=== PATIENT | female | born 2005 | race African-American/Black ===

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

== ENCOUNTER 2024-12-13 17:56 | Emergency (ER) | payer MEDICAID, SELFPAY ==
--- NOTE | ~2024-12-13 | XR_ITS ---
CLINICAL HISTORY: left shoulder pain Two views of the left shoulder. COMPARISON: None provided. FINDINGS: Proximal left humerus, the left scapula, and the left clavicle appear intact. Humeral head is appropriately seated in the glenoid. Acromioclavicular joint appears maintained. Visualized portions of the left lung are clear. IMPRESSION: 1. No radiographic evidence of acute injury to the left shoulder. This document has been electronically signed by: Margarito Resendiz MD on 12/13/2024 19:01:33
[2024-12-13 18:01] VITALS: BP 122/67; PULSE 81; RESP 14; TEMP 36.8; O2SAT 99; BMI 20.7
--- NOTE | 2024-12-13 18:10 | ED_ITS ---
HPI - General Adult General Chief complaint: Extremity Problem Stated complaint: left shoujlder pain Time Seen by Provider: 12/13/24 18:54 Source: patient Mode of arrival: ambulatory Limitations: no limitations History of Present Illness ED Provider: DR. Salazar HPI narrative: 19-year-old female came in for evaluation of left shoulder pain. Patient been having problem with her left shoulder for the past 2 years on and off, shoulder pain has been constant for last 2- 3 days after heavy lifting at the gym and work. Related Data Allergies Allergy/AdvReac Type Severity Reaction Status Date / Time No Known Allergies (No Known Allergy Verified 12/13/24 18:03 Allergies*) Review of Systems Review of Systems: All other systems are reviewed and are negative Constitutional: Reports as per HPI and Reports no additional constitutional complaints Eyes: Reports as per HPI and Reports no additional eye complaints Reports system reviewed and no additional complaints, except as documented Cardiovascular: Reports as per HPI and Reports no additional cardiovascular complaints Respiratory: Reports as per HPI and Reports no additional respiratory complaints Gastrointestinal: Reports as per HPI and Reports no additional gastrointestinal complaints Genitourinary: Reports no additional female genitourinary complaints Musculoskeletal: Reports no additional musculoskeletal complaints Skin/Breast: Reports system reviewed and no additional complaints, except as docu Psychiatric: Reports no additional psychiatric complaints Endocrine: Reports no additional endocrine complaints Hematologic/Lymphatic: Reports no additional hematologic/lymphatic complaints Allergic/Immunologic: Reports no additional allergic/immunologic complaints Reports system reviewed and no additional complaints, except as documented and Reports Abnormal speech present [facility] Past Medical History Medical History No pertinent past medical history Social History Social History Household Members Other:: Lives with mom, dad, sister Smoked in Last 30 Days: No Advance Directives: No Advance Directives Information Provided: No Do you have a plan to hurt others: No Plan Physical Exam ED Vital Signs: Vital Signs - 24 hr 12/13/24 18:01 12/13/24 19:56 Temperature 98.3 F 98.3 F Pulse Rate 81 81 Respiratory Rate 14 14 Blood Pressure 122/67 122/67 Pulse Oximetry 99 99 Oxygen Delivery Method Room Air Room Air BMI result Body Mass Index 20.7 Vital signs have been reviewed and appear to be correct. Blood pressure elevated. Heart rate normal. Respiratory rate normal. Temperature normal. Oxygen saturation normal. Appearance: Alert. Oriented X3. No acute distress. Head: Normal external exam. Normocephalic. Atraumatic. No Foster signs noted. No raccoon eyes noted Eyes: PERRLA. EOMI. Conjunctiva and sclera normal. Eyelids normal. ENT: TM's Normal. Pharynx normal. Uvula midline. Moist mucous membranes. No tr ismus noted. No drooling noted. No muffled voice noted. Neck: Normal inspection. Neck supple. FROM. No adenopathy. Thyroid Normal. No meningeal signs. No neck mass noted. CVS: Normal heart rate and rhythm. Heart sound normal. No murmurs noted. Pulses normal throughout. Respiratory: No respiratory distress. Painless inspiration. Breath sounds normal. No wheezes/rales/rhonchi noted. Chest nontender. No accessory muscle usage noted or decreased air movement noted. Abdomen: Soft and nontender. Bowel sounds normal in all 4 quadrants. No distention noted. No organomegaly noted. No visible injury noted. Back: No CVA tenderness. Full range of motion noted. Skin: Skin warm and dry. Normal skin color. Normal skin turgor. No rashes/lesions/lacerations noted. Extremities: Left shoulder: Held in adduction position, started to hurt once it reach above 30 degree abduction, limited range of motion secondary to pain, no anterior fullness, neurovascularly intact. Neuro: Oriented X 3. Cranial nerve exam: II-XII are grossly intact No motor deficit. No sensory deficit. Reflexes normal. Course Course Course Narrative: RME: 19 yold female presens to the Ed for left shoulder pain that has been occurring for the past 2 years that has worsenend the past few week due to heavy lifting at work. Patient denies any chest pain or shortness of breath. Xray ordre. Reevaluation(s) Reevaluation #1: Acute on chronic left rotator cuff tendinitis. Patient was instructed to rest, refrain from heavy lifting until pain completely resolved, heating pad, NSAIDs if needed, and follow-up with ortho. Time: 19:49 Medical Decision Making Differential Diagnosis Differential Diagnoses: The differential diagnosis associated with the presentation includes (Left shoulder fracture, left shoulder dislocation, rotator cuff tendinitis.) Admission/Observation Consideration of admission/observation: Escalation of care including admission/observation considered Independent Interpretation I performed an independent interpretation of an: Plain X-Ray (Left shoulder:. No radiographic evidence of acute injury to the left shoulder.) Radiology Impression Discussion of test interpretation with radiology: I have reviewed the radiologist's reading. Discharge Plan Discharge Clinical Impression: Right rotator cuff tendonitis Patient Disposition: Home, Self-Care Instructions: Rotator Cuff Tendinitis (ED) Additional Instructions: Refrain from heavy lifting, no strenuous activity, rest, heating pad, take ibuprofen (200 mg tablet [id number]) if needed for pain Referrals: David Kingsley MD [Physician, Orthopedics] Stand Alone Forms: Work/School Release Interventions: ED Discharge Assessment Last Done: 12/13/24 19:56 Discharge Date/Time: 12/13/24 19:57 Print Language: Slovenian
[2024-12-13 19:56] VITALS: BP 122/67; PULSE 81; RESP 14; TEMP 36.8; O2SAT 99
== END 2024-12-13 19:57 | disposition home or self-care (01) ==
PROVIDERS: Emergency Provider Emergency Medicine
DX: M65.221 Calcific tendinitis, right upper arm (principal); M25.512 Pain in left shoulder
CPT/HCPCS: 73030; 99283

== ENCOUNTER → 2024-12-13 18:09 | Outpatient (BNV) | payer MEDICAID, SELFPAY | PROVIDERS: Emergency Provider Emergency Medicine; Visit Provider Radiology Diagnostic Radiology | DX: M25.512 Pain in left shoulder (principal) | CPT/HCPCS: 73030 ==

== ENCOUNTER 2025-02-07 10:53 | Outpatient (REF) | payer MEDICAID, SELFPAY ==
--- OUTSIDE RECORDS SUMMARY | 2025-02-07 10:00 | XMS_ITS | Encounter Summary ---
Author Organization [employer] Address [address] [place] [address] Care Team Providers Care Dry Can Tender Name Role Phone Jaye Travis MD Primary Care Provider [phone]- [phone] Reason for Referral * Consultation (Routine) - Authorized Specialty Diagnoses / Procedures Referred By Elena sharpe Referred To Contact Optometry Diagnoses Wears glasses Jaye Travis MD [address] [place], [place] Phone: tel: fax: [facility] [address] [place] [address] Phone: tel: fax: Referral ID Status Reason Start Date Expiration Date Visits Requested Visits Authorized [id number] Authorized Consult and Treat 02/07/2025 02/07/2026 1 1 * Consultation (Routine) - Authorized Specialty Diagnoses / Procedures Referred By Contkurtis t Referred To Contact Allergy Diagnoses Food intolerance Seasonal allergies Jaye Travis MD [address] [place] [address] Phone: tel: fax: Sarwat Dai MD [address] [place] [address] Drive [address] [place] [address] Phone: tel: fax: Referral ID Status Reason Start Date Expiration Date Visits Requested Visits Authorized [id number] Authorized Specialty Services Required 02/07/2025 02/07/2026 12 12 Reason for Visit * Reason Comments Annual Exam Encounter Details Date Type Department Care Team (Late st Contact Info) Description 02/07/2025 10:00 AM EDT Office Visit [facility] [address] [place] [address] Jaye Travis MD [address], [place] [id number] Elective mutism (Primary Dx); Chronic left shoulder pain; Abdominal bloating; Postural dizziness with presyncope; Food intolerance; Seasonal allergies; Vitamin D deficiency; Wears glasses; Screening for cholesterol level; Screening for diabetes mellitus; Routine screening for STI (sexually transmitted infection); Other specified health status Social History Tobacco Use Types Packs/Day Years Used Date Smoking Tobacco: Never Passive Smoke Exposure: Never Smokeless Tobacco: Never Depression Answer Date Recorded Patient Health Questionnaire-9 Score 1 02/07/2025 Patient Health Questionnaire-9 Score 1 02/07/2025 Last PHQ-9: Questionnaire Data Not on file 0 02/07/2025 Housing Stability Answer Date Recorded What is your housing situation today? I have christine davis 02/07/[address] you li ve. Do you have problems with any of the following? None of the above 02/07/2025 Food Insecurity Answer Date Recorded Within the past 12 months, y ou worried that your food would run out before you got money to buy more: Never True 02/07/2025 Within the past 12 months,th e food you bought just didn't last and you didn't have enough money to get more: Never True Transportation Answer Date Recorded In the past 12 months, has l ack of transportation kept you from medical appts, meetings, work or from getting things needed for daily living? No 02/07/2025 Utilities Answer Date Recorded In the past 12 months, has t he electric, gas, oil or water company threatened to shut off services in your home? No 02/07/2025 Depression Answer Date Recorded Patient Health Questionnaire-2 Score 0 02/07/2025 Internet Access Answer Date Recorded Internet Access Q1 I am not sure 02/07/2025 Internet Access Q2 Not on file 02/07/2025 Comments No Sex and Gender Information Value Date Recorded Sex Assigned at Female 04/12/2022 10:19 AM EDT Legal Sex Female 10:19 AM EDT Gender Identity Female 04/12/2022 10:19 AM EDT Sexual Orientation Choose not to disclose 2021 10:19 AM EDT documented as of this encounter Last Filed Vital Signs Vital Sign Reading Time Taken Comments Blood Pressure 96/62 02/07/2025 10:06 AM EDT Pulse 78 02/07/2025 10:06 AM EDT Temperature 34.7 C (94.4 F) 02/07/2025 10:06 AM EDT Respiratory Rate 20 02/07/2025 10:06 AM EDT Oxygen Saturation 98% 02/07/2025 10:06 AM EDT Inhaled Oxygen Concentration - - Weight 65.5 kg (144 lb 6.4 oz) 02/07/2025 10:06 AM EDT Height 175.3 cm (5' 9 ) 02/07/2025 10:06 AM EDT Body Mass Index 21.32 02/07/2025 10:06 AM EDT documented in this encounter Functional Status * Over the past 2 weeks, how often have you been bothered by any of the following problems? Question Answer Date of Assessment Author Patient Health Questionnaire-2 Score 0 01/12 10:25 AM Lurdes Rodriguez MA * Little interest or pleasure in doing things Answer Date of Assessment Author Not at all 02/07/2025 10:25 AM Rimma Rodriguez MA * Feeling down, depressed, or hopeless Answer Date of Assessment Author Not at all 02/07/2025 10:25 AM GILAT Rimma Alfonso MA * Trouble falling or staying asleep, or sleeping too much Answer Date of Assessment Author Not at all 02/07/2025 10:25 AM Rimma Rodriguez MA * Feeling tired or having little energy Answer Date of Assessment Author Several days 02/07/2025 10:25 AM Rimma Rodriguez MA * Poor appetite or overeating Answer Date of Assessment Author Not at all 02/07/2025 10:25 AM Rimma Rodriguez MA * Feeling bad about yourself - or that you are a failure or have let yourself or your family down Answer Date of Assessment Author Not at all 02/07/2025 10:25 AM Rimma Rodriguez MA * Trouble concentrating on things, such as reading the newspaper or watching television Answer Date of Assessment Author Not at all 02/07/2025 10:25 AM Rimma Rodriguez MA * Moving or speaking so slowly that other people could have noticed? Or the opposite - being so fidgety or restless that you have been moving around a lot more than usual. Answer Date of Assessment Author Not at all 02/07/2025 10:25 AM Rimma Rodriguez MA * Thoughts that you would be better off or hurting yourself in some way Answer Date of Assessment Author Not at all 02/07/2025 10:25 AM Rimma Rodriguez MA * Patient Health Questionnaire-9 Score Answer Date of Assessment Author 1 02/07/2025 10:25 AM Rimma Rodriguez MA * Over the last 2 weeks, how often have you been bothered by any of the following problems? Question Answer Date of Assessment Author Feeling nervous, anxious, or on edge 0 01/12 10:30 AM Lurdes Rodriguez MA Not being able to stop or co ntrol worrying 0 02/07/2025 10:30 AM Lurdes Rodriguez M A Worrying too much about diff erent things 0 02/07/2025 10:30 AM Lurdes Rodriguez M A Trouble relaxing 0 02/07/2025 10:30 AM Lurdes Rodriguez MA Being so restless that it is hard to sit still 0 02/07/2025 10:30 AM Lurdes Rodriguez M A Becoming easily annoyed or irritable 0 01/12 10:30 AM Lurdes Rodriguez MA Feeling afraid as if somethi ng awful might happen 0 02/07/2025 10:30 AM Ludres Rodriguez M A JULIA-7 Total Score 0 02/07/2025 10:30 AM Lurdes Rodriguez MA documented as of this encounter Progress Notes * Jaye Travis MD - 02/07/2025 10:00 AM EDT Subjective Sindy is a 19 y.o. 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 Last seen for physical 2022. Pt reports she is tired because she has been playing video games with her siblings and keeping thementertained this summer. She notes she is working at [employer] and has been lifting heavy things. Denies any back strain. She notes she had shoulder strain on her chronic shoulder pain previously and had Mom reports a list of concerns. She reports wanting to check for diabetes, POTS, vertigo, thyroid, and allergy testing. Pt reports she has been thinking she has vertigo she notices everything slow down and has blackenedvision. Mom says she has had episodes where she has had syncopal episodes. Mostly occurring from going from sitting to standing and an isolated episode where pt had dizziness and blurry vision while standing. Pt reports she has these episodes frequently, but is not specific about the frequency. She notes she has been having episodes of noticeable bloating after eating. Pt says she has been using lactose free milk. Denies any diarrhea, vomiting or allergic reactions. Recommended trying gluten and soy free diets and then reintroduce to evaluate for sensitivity. Social History Home: She lives at home with both her parents as well as multiple siblings. Tobacco: denied Drugs: none Alcohol: No Sexuality: Has a male partner. Declines control, having sexual intercourse, pulling out to avoid , uses condoms every time. Declines extra condoms. Offered plan B. Suicide/Depression: The patient denies any present symptoms of depression or anxiety. Review of Systems Constitutional: Negative for fatigue, fever and unexpected weight change. Respiratory: Negative for cough. Cardiovascular: Negative for chest pain. Gastrointestinal: Negative for abdominal pain. Genitourinary: Negative for difficulty urinating. Neurological: Positive for dizziness. Current Medications[1] Allergies[2] Medical History[3] Surgical History[4] Family History[5] Objective Visit Vitals BP 96/62 (BP Location: Left arm, Patient Position: Standing, BP Cuff Size: Adult) Pulse 78 Temp 94.4 ??F (34.7 ??C) (Oral) Resp 20 Ht 5' 9 (1.753 m) Wt 144 lb 6.4 oz (65.5 kg) SpO2 98% BMI 21.32 kg/m?? OB Status Having periods Smoking Status Never BSA 1.79 m?? Physical Exam Constitutional: Appearance: Normal appearance. HENT: Head: Normocephalic. Right Ear: Tympanic membrane normal. Left Ear: Tympanic membrane normal. Mouth/Throat: Pharynx: Oropharynx is clear. Eyes: Pupils: Pupils are equal, round, and reactive to light. Cardiovascular: Rate and Rhythm: Normal rate and regular rhythm. Heart sounds: Normal heart sounds. Pulmonary: Effort: Pulmonary effort is normal. Breath sounds: Normal breath sounds. Abdominal: General: Abdomen is flat. Palpations: There is no mass. Tenderness: There is no abdominal tenderness. Musculoskeletal: General: Normal range of motion. Cervical back: Normal range of motion and neck supple. Lymphadenopathy: Cervical: No cervical adenopathy. Skin: General: Skin is warm and dry. Neurological: General: No focal deficit present. Mental Status: She is alert. Psychiatric: Behavior: Behavior normal. 19 y.o. female annual evaluation. Assessment & Plan Elective mutism Improving, still selective, but able to talk to me and mom and has a boyfriend. Chronic left shoulder pain Heavy lifting at work. -encouraged supportive care, ice and heat therapy, physical therapy, and stretch/exercise as tolerable. Abdominal bloating No evidence of acute abdomen. Denies diarrhea or vomiting. No changes in BM. -encouraged dietary changes and experimenting with soy, gluten and diary. -referred to cabinet maker 02/07/25 Postural dizziness with presyncope Reports episodes of dizziness and visual blackout. Isolated witnessed syncope. Denies chest pain, SOB or palpitations. No fhx of CAD. Typically occurring with orthostatic movements. -ordered CBC, TSH, Iron panel and Vit B12 02/07/25 -discussed stretching, exercises and at home therapy for suspected POTS. Orders: CBC auto differential; Future Ferritin; Future TSH with Reflex to Free T4; Future Iron And Total Iron Binding Capacity; Future Vitamin B12 (Cobalamin) and Folate Panel, Serum; Future Food intolerance No evidence of acute abdomen. Denies diarrhea or vomiting. No changes in BM. -encouraged dietary changes and experimenting with soy, gluten and diary. -referred to cabinet maker 02/07/25 Orders: Referral to Allergy; Future Seasonal allergies -referred to cabinet maker 02/07/25 Orders: Referral to Allergy; Future Vitamin D deficiency -ordered Vit D 02/07/25 Orders: Vitamin D, 25-Hydroxy, Total, Immunoassay; Future Wears glasses Orders: Referral to [facility]; Future Screening for cholesterol level -ordered FLP 02/07/25 Orders: Lipid Panel, Standard; Future Screening for diabetes mellitus -ordered BMP 02/07/25 Orders: Basic Metabolic Panel; Future Routine screening for STI (sexually transmitted infection) Orders: Chlamydia/N. Gonorrhoeae, PCR, Urine HIV-1/2 Antigen and Antibodies, Fourth Generation, with Reflexes; Future Syphilis Screen; Future Hepatitis C Antibody with Reflex to HCV, RNA, Quantitative, Real-Time PCR; Future Other specified health status -next comprehensive annual evaluation due after 02/07/26 -referred to [facility] 02/07/25 -dental home is encouraged. Will get in with [facility]. -ashleigh care proxy given and filed 02/07/25 Annual Evaluation -Normal growth and development. -Anticipatory guidance discussed. -Preventative care / harm reduction discussed. Follow up in about 1 year (around 02/07/2026) for physical. I, Fercho Juan, am serving as a scribe to document services personally performed by Dr. Ley, based on the patient's response to questions by provider and providers statements to me. [1] Current Outpatient Medications: cetirizine (ZyrTEC) 10 MG tablet, Take 1 tablet (10 mg) by mouth Once per day., Disp: 30 tablet, Rfl: 0 D3-1000 25 MCG (1000 UT) capsule, TAKE 1 CAPSULE BY MOUTH EVERY DAY, Disp: 90 capsule, Rfl: 3 fluticasone (Flonase) 50 MCG/ACT nasal spray, Administer 1 spray into each nostril Once per day. Shake gently. Before first use, prime pump. After use, clean tip and replace cap., Disp: 16 g, Rfl: 0 lidocaine (Lidoderm) 5 % patch, Apply 1 patch topically Once per day. Remove & discard patch within 12 hours or as directed by MD., Disp: 30 patch, Rfl: 11 montelukast (Singulair) 10 MG tablet, TAKE 1 TABLET BY MOUTH EVERY DAY, Disp: 90 tablet, Rfl: 3 [2] No Known Allergies [3] History reviewed. No pertinent past medical history. [4] History reviewed. No pertinent surgical history. [5] Family History Problem Relation Name Age of Onset Diabetes Father Hypertension Father documented in this encounter Miscellaneous Notes * Assessment & Plan Note - Jaye Travis MD - 02/07/2025 10:00 AM EDT Associated Problem(s): Elective mutism Improving, still selective, but able to talk to me and mom and has a boyfriend. * Assessment & Plan Note - Jaye Travis MD - 02/07/2025 10:00 AM EDT Associated Problem(s): Other specified health status -next comprehensive annual evaluation due after 02/07/26 -referred to [facility] 02/07/25 -dental home is encouraged. Will get in with [facility]. -ashleigh care proxy given and filed 02/07/25 * Assessment & Plan Note - Jaye Travis MD - 02/07/2025 10:00 AM EDT Associated Problem(s): Wears glasses Orders: Referral to [facility]; Future documented in this encounter Plan of Treatment Scheduled Orders Name Type Priority Associated Diagnoses Orde r Schedule Chlamydia/N. Gonorrhoeae, PCR, Urine Lab Routine Routine screening for STI (sexually transmitted infection) Ordered: 02/07/2025 HIV-1/2 Antigen and Antibodies, Fourth Generation, with Reflexes Lab Routine Routine screening for STI (sexually transmitted infection) Expected: 02/07/2025 (Approximate), Expires: 02/07/2026 Syphilis Screen Lab Routine Routine screening for STI (sexually transmitted infection) Expected: 02/07/2025 (Approximate), Expires: 02/07/2026 Hepatitis C Antibody with Reflex to HCV, RNA, Quantitative, Real-Time PCR Lab Routine Routine screening for STI (sexually transmitted infection) Expected: 02/07/2025 (Approximate), Expires: 02/07/2026 Basic Metabolic Panel Lab Routine Screening for diabetes mellitus Expected: 02/07/2025 (Approximate), Expires: 02/07/2026 Lipid Panel, Standard Lab Routine Screening for cholesterol level Expected: 02/07/2025 (Approximate), Expires: 02/07/2026 CBC auto differential Lab Routine Postural dizziness with presyncope Expected: 02/07/2025 (Approximate), Expires: 02/07/2026 Ferritin Lab Routine Postural dizziness with presyncope Expected: 02/07/2025, Expires: 02/07/2026 TSH with Reflex to Free T4 Lab Routine Postural dizziness with presyncope Expected: 02/07/2025 (Approximate), Expires: 02/07/2026 Iron And Total Iron Binding Capacity Lab Routine Postural dizziness with presyncope Expected: 02/07/2025, Expires: 02/07/2026 Vitamin B12 (Cobalamin) and Folate Panel, Serum Lab Routine Postural dizziness with presyncope Expected: 02/07/2025, Expires: 02/07/2026 Vitamin D, 25-Hydroxy, Total, Immunoassay Lab Routine Vitamin D deficiency Expected: 02/07/2025 (Approximate), Expires: 02/07/2026 Scheduled Referrals Name Type Priority Associated Diagnoses Orde r Schedule Referral to Allergy Outpatient Referral Routine Food intolerance Seasonal allergies Expected: 02/07/2025 (Approximate), Expires: 02/07/2026 Referral to [facility] Outpatient Referral Routine Wears glasses Expected: 02/07/2025 (Approximate), Expires: 02/07/2026 documented as of this encounter Visit Diagnoses Diagnosis Elective mutism- Primary 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 Chronic left shoulder pain Pain in joint, shoulder region Abdominal bloating Flatulence, eructation, and gas pain Postural dizziness with presyncope Food intolerance Other specified intestinal malabsorption Seasonal allergies Allergic rhinitis, cause unspecified Vitamin D deficiency Wears glasses Other specified conditions influencing health status Screening for cholesterol level Screening for diabetes mellitus Routine screening for STI (sexually transmitted infection) Screening examination for venereal disease Other specified health status documented in this encounter Additional Health Concerns Assessment Noted Time PHQ-9 Depression Total Score: 1 02/08/20 25 10:25 AM EDT documented as of this encounter Care Teams Dry Can Tender Relationship Specialty Start Date End Date Jaye Travis MD [address] [place] [id number] PCP - General Family Medicine 06/13/18 documented as of this encounter
--- OUTSIDE RECORDS SUMMARY | 2025-02-07 12:21 | XMS_ITS | Encounter Summary ---
Author Organization [employer] Address [address] [place] [address] Care Team Providers Care Supervisor Microbiology Technologists Name Role Phone Jaye Travis MD Primary Care Provider +1- [phone] Encounter Details Date Type Department Care Team (Latest Contact Info) Description 02/07/2025 Travel Social History Tobacco Use Types Packs/Day Years [...] AM EDT documented as of this encounter Functional Status * Over the [...] 10:25 AM Rimma Rodriguez MA * Trouble falling or staying asleep, [...] or on edge 0 01/12 10:30 AM EDLurdes Mustafa MA Not being able to stop or [...] awful might happen 0 02/07/2025 10:30 AM Lurdes Rodriguez M A JULIA-7 Total Score 0 02/07/2025 10:30 AM Lurdes Rodriguez MA documented as of this encounter Plan of Treatment Not on file documented as of this encounter Visit Diagnoses Not on filedocumented in this encounter Additional Health Concerns Assessment Noted Time PHQ-9 Depression Total Score: 1 02/08/20 10:25 AM EDT documented as of this encounter Care Teams Supervisor Microbiology Technologists Relationship Specialty Start Date End Date Jaye Travis MD [address] [place] [address] PCP - General Family Medicine 06/13/18 documented as of this encounter
--- OUTSIDE RECORDS SUMMARY | 2025-02-07 12:21 | XMS_ITS | Clinical Summary ---
Author Organization [employer] Address [address] [facility] [address] [place] [address] Care Team Providers Care Third Grade Teacher Name Role Phone Jaye Travis MD Primary Care Provider [phone] Allergies No known active allergies Medications montelukast (Singulair) 10 MG tabletIndicatio ns:Allergic rhinitis, unspecified seasonality, unspecified trigger TAKE 1 TABLET BY MOUTH EVERY DAY 90 tablet 3 07/20/19 23 Active D3-1000 25 MCG (1000 UT) capsule TAKE 1 CAPSULE BY MOUTH EVERY DAY 90 capsule 3 02/08/20 23 Active cetirizine (ZyrTEC) 10 MG tabletIndicatio ns:Sore throat Take 1 tablet (10 mg) by mouth Once per day. 30 tablet 10/31/19 25 Active fluticasone (Flonase) 50 MCG/ACT nasal sprayIndication s:Sore throat Administer 1 spray into each nostril Once per day. Shake gently. Before first use, prime pump. After use, clean tip and replace cap. 16 g 10/31/19 25 Active lidocaine (Lidoderm) 5 % patchIndication s:Chronic left shoulder pain Apply 1 patch topically Once per day. Remove & discard patch within 12 hours or as directed by . 30 patch 11 12/08/19 25 Active benzocaine-ment hol (Chloraseptic) 6-10 MG lozengeIndicati ons:Sore throat Dissolve 1 lozenge in the mouth every 2 (two) hours if needed for sore throat. 100 lozenge 10/31/19 25 025 Discontinued Active Problems Problem Noted Date Diagnosed Date Wears glasses 02/07/2025 Assessment & Plan (02/07/2025 10:54 AM EDT): Orders: Referral to [facility]; Future Sore throat 10/30/2024 Assessment & Plan (10/30/2024 1:42 PM EDT): 18 year old female with no significant Pmhx here accompanied by her Mother. Pt wanted to have her mother present in the room when discussing confidential health information. C/o new onset sore throat, headache and generalized malaise. No cough, no fever. Pt has a boyfriend and is sexually active, her boyfriend is not sick. Etiology, likely viral URI, nothing to suggest [place] at the moment , aside from mild right sided cervical lymphadenopathy Rapid Covid, Strep and Flu negative. Plan: supportive measures, tylenol, antihistaminics, throat lozenges. Excise for work given Other specified health status 11/24/2022 Overview (02/07/2025): -next comprehensive annual evaluation due after 02/07/26 -referred to [facility] 02/07/25 -dental home is encouraged. Will get in with [facility]. -[place] care proxy given and filed 02/07/25 Assessment & Plan (02/07/2025 10:54 AM EDT): -next comprehensive annual evaluation due after 02/07/26 -referred to [facility] 02/07/25 -dental home is encouraged. Will get in with [facility]. 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 Assessment & Plan (02/07/2025 10:54 AM EDT): Improving, still selective, but able to talk to me and mom and has a boyfriend. Assessment & Plan (08/23/2022 10:39 AM EDT): Mom reports she does talk at home and in school. Shes an honor student. Encounters Date Type Department Care Team Description 02/07/2025 10:00 AM EDT Office Visit [facility] [address] [place] [id number] Jaye Travis MD Elective mutism (Primary Dx); Chronic left shoulder pain; Abdominal bloating; Postural dizziness with presyncope; Food intolerance; Seasonal allergies; Vitamin D deficiency; Wears glasses; Screening for cholesterol level; Screening for diabetes mellitus; Routine screening for STI (sexually transmitted infection); Other specified health status 02/07/2025 Travel 01/31/2025 Travel 01/30/2025 Patient Outreach [address] [id number] Jaye Travis MD Pre-visit Planning (Pre-visit planning - LVM ) 12/07/2024 3:15 PM EDT Office Visit [address] [id number] Vera Ramirez CNP Chronic left shoulder pain (Primary Dx) 12/07/2024 Travel 12/06/[address] [id number] Jaye Travis MD Nurse Triage from Last 3 Months Family History Medical History Relation Name Comments Diabetes Father Hypertension Father Relation Name Status Comments Father Social History Tobacco Use Types Packs/Day Years Used Date Smoking Tobacco: Never Passive Smoke Exposure: Never Smokeless Tobacco: Never Tobacco Cessation:Counseling Given: Not Answered Depression Answer Date Recorded Patient Health Questionnaire-9 [...] not to disclose 2021 10:19 AM EDT Last Filed Vital Signs Vital Sign Reading [...] Mass Index 21.32 02/07/2025 10:06 AM EDT Plan of Treatment Health Maintenance Due Date Last Done Comments Chlamydia and Gonorrhea Screening 2004 HIV Screening 2004 Family Planning (PISQ) 12/09/2019 Meningococcal B Vaccine (1 of 2 - Standard) 2020 Hepatitis C Screening 2022 Influenza Vaccine (#1) 2025 , 05/20/2020, 07/12/2019, Additional history exists Disability Screening 01/31/2026 01/31/2025 Alcohol/Substance Use Screening 02/07/2026 02/07/2025 COVID-19 Vaccine ( season) 2026 Postponed from 02/12/2024 (Patient Refused) Depression Screening 02/07/2026 02/07/2025, 02/08/20 SDOH Screening 02/07/2026 02/07/2025 Tobacco Screening 02/07/2026 02/07/2025 DTaP/Tdap/Td Vaccines (7 - Td or Tdap) 07/15/2026 07/15/2016, 12/23/2008, 05/02/2006, Additional history exists Zoster Vaccines (1 of 2) 2054 RSV Patients and Patients Aged 60 years or older (1 - 1-dose 75+ series) 12/09/2079 Hepatitis B Vaccines Completed 06/24/2005, 04/22/2005, 2004 HIB Vaccines Completed 12/23/2005, 06/13, 04/22/2005, Additional history exists Pneumococcal Vaccine: Pediatrics (0 to 5 Years) and At-Risk Patients (6 to 49) Years Aged Out 05/02/2006, 06/24/2005, 04/22/2005, Additional history exists No longer eligible based on patient's age to complete this topic IPV Vaccines Completed 12/23/2008, 06/13, 04/22/2005, Additional history exists HPV Vaccines Completed 07/15/2016, 06/14, 06/26/2014 Hepatitis A Vaccines Completed 04/30/2021, 07/24/19 19 Meningococcal Vaccine Completed 04/30/2021, 017 RSV under 20 months Aged Out No longe r eligible based on patient's age to complete this topic Rotavirus Vaccines Aged Out No longer eligible based on patient's age to complete this topic Insurance [employer] [facility] [place] [address] [address] C3 Care Teams Third Grade Teacher Relationship Specialty Start Date End Date Scott, MD Jaye [address] [place] [id number] PCP - General Family Medicine 06/13/18
[2025-02-07 13:17] LABS: MANUAL DIFF FLAG NO
[2025-02-07 13:37] LABS: Hematocrit 38.3 % (37.0-47.0); Hemoglobin 12.2 g/dl (12.0-16.0); Imm Gran Abs Auto 0.01 X10*3/uL (0.00-0.03); Imm Gran Pct Auto 0.2 % (0.0-0.4); Lymphocytes Absolute Auto 2.1 X10*3/uL (1.2-4.9); Mean Corpuscular HGB Conc 31.9 g/dl (31.0-35.0); Mean Corpuscular Hemoglobin 28.7 pg (27.0-33.0); Mean Corpuscular Volume 90.1 fL (80.0-98.0); NRBC Abs Auto 0.000 X10*3/uL (0.0-0.012); NRBC Pct Auto 0.0 /100WBC (0.0-0.2); Platelet Count 298 X10*3/uL (160-400); Red Blood Count 4.25 X10*6/uL (4.20-5.50); White Blood Count 4.8 X10*3/uL (4.8-10.8)
[2025-02-07 13:44] LABS: Anion Gap 10 (12-20); Blood Urea Nitrogen 21 mg/dL (9-16); Calcium 9.5 mg/dL (8.4-10.2); Carbon Dioxide 28 mmol/L (22-29); Chloride 104 mmol/L (96-108); Cholesterol 175 mg/dL (<200); Estimated Glomerular Filt Rate > 60; HDL Cholesterol 79 mg/dL (>40); Iron 118 mcg/dL (30-160); Percent Iron Saturation 31 % (15-50); Potassium 4.0 mmol/L (3.3-5.1); Sodium 138 mmol/L (135-145); Total Iron Binding Capacity 384 mcg/dL (228-428); Triglycerides 29 mg/dL (<150); Unsaturated Iron Binding 266 ug/dL
[2025-02-07 14:03] LABS: Ferritin 12 ng/mL (10-122)
[2025-02-07 14:10] LABS: Folate 9.1 ng/mL (> or = 4.0); Vitamin B12 465 pg/mL (200-900)
[2025-02-07 15:23] LABS: CT PCR Urine NOT DETECTED (Not Detect.); NG PCR Urine NOT DETECTED (Not Detect.)
[2025-02-08 03:40] LABS: Syphilis Screen Nonreactive (Nonreactive)
[2025-02-08 03:45] LABS: HIV Num 1 0.05 S/CO (0.00-0.99); ~HepC Num1 0.55 S/CO (0.00-0.79); ~Hepatitis C Antibody Nonreactive (Nonreactive)
== END 2025-02-07 10:54 | disposition home or self-care (01) ==
LOC: HO.HHCL 10:53
PROVIDERS: PCP Family Medicine; Visit Provider Family Medicine
DX: R42 Dizziness and giddiness (principal); R55 Syncope and collapse; E55.9 Vitamin D deficiency, unspecified; Z11.3 Encounter for screening for infections with a predominantly sexual mode of transmission; Z13.220 Encounter for screening for lipoid disorders; Z13.1 Encounter for screening for diabetes mellitus; Z11.4 Encounter for screening for human immunodeficiency virus [HIV]; Z11.8 Encounter for screening for other infectious and parasitic diseases
CPT/HCPCS: 36415; 80048; 80061; 82306; 82607; 82728; 82746; 83540; 84443; 85025; 86780; 86803; 87389; 87491; 87591

== ENCOUNTER 2025-03-01 13:37 | Outpatient (AMB) | payer MEDICAID, SELFPAY ==
--- NOTE | 2025-03-01 13:40 | A.OFFVIS_ITS ---
Intake Visit Reasons: New Pt - left shoulder pain Intake Note: Sindy is a 19 year old right hand dominant female who presents today as a new patient for a evaluation of her left shoulder pain. Patient reports off and on pain for about 2 years. Patient has noticed her pain is getting worse since November. She mentions that her shoulder pain has been constant for last couple weeks after heavy lifting at the gym and work. She has tried heating and cooling pad with no relief and Tylenol and NSAIDs with no changes in pain. IMPRESSION: 1. No radiographic evidence of acute injury to the left shoulder. Estate Planning Paralegal Services: Estate Planning Paralegal Present Accompanied by: Parent Allergies No Known Allergies (No Known Allergies*) Allergy (Verified 03/01/25 13:46) HPI HPI New Pt - left shoulder pain: Details: Ms. Rodriguez is a 19-year-old right-hand dominant female who presents to the office today for evaluation of left shoulder pain for the past 2 years. She denies any initial injury or trauma to the left shoulder. 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 She was performing some heavy lifting a few weeks ago and has noticed an increase in shoulder pain. Additionally, about a week and a half ago she had a numbness and tingling sensation that went from the lateral aspect of the shoulder across into the anterior aspect of her chest. She has tried Tylenol and anti-inflammatories with no relief as well as ice and heat with no relief. [facility] Medical History No pertinent past medical history Social History (Updated 03/01/25 @ 13:47 by Janina Powell) Household Members Other:: Lives with mom, dad, sister Patient Tobacco Use Status: Never used Tobacco Current occupational status: employed Current occupation: Warehouse/ lifting and packing totes. Right hand dominant Review of Systems Const All systems reviewed & are unremarkable except as noted in HPI and below Physical Exam Const General: cooperative, healthy appearing and no acute distress Resp Effort & Inspection: normal respiratory effort and able to speak in complete sentences Extrem Other: Left shoulder: No ecchymosis, erythema, or edema. Full shoulder ROM in all planes. Negative cross-body reach. Negative empty can. Negative drop arm. Negative [place]'s. NVI. Psych Appearance: grossly normal Mental Status: mental status grossly normal Attitude: cooperative Assessment & Plan Assessment & Plan (1) Painful arc syndrome of left shoulder: Code(s): M75.102 - Unspecified rotator cuff tear or rupture of left shoulder, not specified as traumatic Category: Medical Plan Ms. Rodriguez is a 19-year-old right-hand dominant female who presents to the office today for evaluation of left shoulder pain for the past 2 years. She denies any initial injury or trauma to the left shoulder. 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 She was performing some heavy lifting a few weeks ago and has noticed an increase in shoulder pain. Additionally, about a week and a half ago she had a numbness and tingling sensation that went from the lateral aspect of the shoulder across into the anterior aspect of her chest. She has tried Tylenol and anti-inflammatories with no relief as well as ice and heat with no relief. While in the office today, we discussed the role of physical therapy in which the patient is amenable to attend. A physical therapy order has been placed while in the office today. Additionally, I have ordered an EMG study to investigate the numbness and tingling the patient reported along the lateral aspect of the shoulder extending into her chest. I reviewed the x-ray images that were obtained on 12/13/2024 of the left shoulder which were negative for any acute fracture or dislocation. She will follow up in 6-8 weeks after the EMG study and physical therapy has been attended, sooner if needed. Coding Level of Care Code New Pt Level 3 (52686) Diagnoses Painful arc syndrome of left shoulder M75.102
--- OUTSIDE RECORDS SUMMARY | 2025-03-01 13:49 | XMS_ITS | Clinical Summary ---
Author Organization [employer] Address [address] [facility] [address] [place] [address] Care Team Providers Care Rn Ambulatory Name Role Phone Jaye Travis MD Primary Care Provider [phone] Allergies No known active allergies Medications montelukast [...] . 30 patch 11 12/08/19 25 Active cholecalciferol (Vitamin D-3) 50 MCG (2000 UT) capsuleIndicati ons:Vitamin D deficiency Take 1 capsule (50 mcg) by mouth Once per day. 90 capsule 3 02/08/20 25 Active benzocaine-ment hol (Chloraseptic) 6-10 MG lozengeIndicati ons:Sore throat Dissolve 1 lozenge in the mouth every 2 (two) hours if needed for sore throat. 100 lozenge 10/31/19 025 Discontinued Active Problems Problem Noted Date Diagnosed Date Wears glasses 02/07/2025 Assessment & Plan (02/07/2025 2:08 PM EDT): Orders: Referral to [facility]; Future Vitamin D deficiency 02/07/2025 Overview (02/07/2025): Lab Results Component Value Date [id number] 21.4 (L) 02/07/2025 -daily vit d started 02/06/25 Assessment & Plan (02/07/2025 2:08 PM EDT): Lab Results Component Value Date [id number] 21.4 (L) 02/07/2025 -daily vit d started 02/06/25 Orders: Vitamin D, 25-Hydroxy, Total, Immunoassay; Future Sore throat 10/30/2024 Assessment & Plan [...] Etiology, likely viral URI, nothing to suggest Gibson at the moment , aside from mild right sided cervical lymphadenopathy Rapid Covid, Strep and Flu negative. Plan: supportive measures, tylenol, antihistaminics, throat lozenges. Excise for work given Other specified health status 11/24/2022 Overview (02/07/2025): -next comprehensive annual evaluation due after 02/07/26 -referred to [facility] 02/07/25 -dental home is encouraged. Will get in with [facility]. -ashleigh care proxy given and filed 02/07/25 Assessment & Plan (02/07/2025 2:08 PM EDT): -next comprehensive annual evaluation due after 02/07/26 -referred to [facility] 02/07/25 -dental home is encouraged. Will get in with [facility]. 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 Assessment & Plan (02/07/2025 2:08 PM EDT): Improving, still selective, but able to talk to me and mom and has a boyfriend. Assessment & Plan (08/23/2022 10:39 AM EDT): Mom reports she does talk at home and in school. Shes an honor student. Encounters Date Type Department Care Team Description 02/07/2025 10:00 AM EDT Office Visit [address] [address] Jaye Travis MD Elective mutism (Primary Dx); Chronic left shoulder pain; Abdominal bloating; Postural dizziness with presyncope; Food intolerance; Seasonal allergies; Vitamin D deficiency; Wears glasses; Screening for cholesterol level; Screening for diabetes mellitus; Routine screening for STI (sexually transmitted infection); Other specified health status 02/07/2025 Results Follow-Up [facility] [address] [place] [phone] Jaye Travis MD Basic Metabolic Panel, Lipid Panel, Standard, CBC auto differential, Additional followed-up results: 4 02/07/2025 Travel 01/31/2025 Travel 01/30/2025 Patient Outreach [address] [address] Jaye Travis MD Pre-visit Planning (Pre-visit planning - LVM ) 12/07/2024 3:15 PM EDT Office Visit [address] [address] James VeraLEIF Chronic left shoulder pain (Primary Dx) 12/07/2024 Travel 12/06/[address] [facility] [address] [place] [address] Jaye Travis MD Nurse Triage from Last [...] is your housing situation today? I have christinelukas davis 02/07/[address] you [...] 02/07/2025 10:06 AM EDT Plan of Treatment Upcoming Encounters Date Type Department Care Team (Late st Contact Info) Description 08/01/2025 9:30 AM EST Office Visit [facility] [address] [place], [place] [phone] Francoise Cortez, OD [address] [place] [address] Health Maintenance Due Date Last Done Comments Chlamydia and Gonorrhea Screening 2004 Family Planning (PISQ) 12/09/2019 Meningococcal B Vaccine (1 of 2 - Standard) 2020 COVID-19 Vaccine ( - season) 2025 Influenza Vaccine (#1) 2025 , 05/20/2020, 07/12/2019, Additional history exists Disability Screening 01/31/2026 01/31/2025 Alcohol/Substance Use Screening 02/07/2026 02/07/2025 Depression Screening 02/07/2026 02/07/2025, 02/08/20 SDOH Screening [...] 07/24/19 19 Meningococcal Vaccine Completed 04/30/2021, 017 HIV Screening Completed 02/07/2025 Hepatitis C Screening Completed 02/07/2025 RSV under 20 months Aged Out No longe r eligible based on patient's age to complete this topic Rotavirus Vaccines Aged Out No longer eligible based on patient's age to complete this topic Procedures Procedure Name Priority Date/Time Associated Diagnosis Comments VITAMIN D,25-OH,TOTAL,IA Routine 02/07/2025 11:00 AM EDT Vitamin D deficiency VITAMIN B12/FOLATE, SERUM PANEL Routine 02/07/2025 11:00 AM EDT Postural dizziness with presyncope IRON AND TOTAL IRON BINDING CAPACITY Routine 02/07/2025 11:00 AM EDT Postural dizziness with presyncope TSH W/REFLEX TO FT4 Routine 02/07/2025 1 1:00 AM EDT Postural dizziness with presyncope FERRITIN Routine 02/07/2025 11:00 AM EDT Postural dizziness with presyncope CBC WITH AUTO DIFFERENTIAL Routine 02/07/2025 11:00 AM EDT Postural dizziness with presyncope LIPID PANEL, STANDARD Routine 02/07/2025 11:00 AM EDT Screening for cholesterol level BASIC METABOLIC PANEL Routine 02/07/2025 11:00 AM EDT Screening for diabetes mellitus HEPATITIS C AB W/REFL TO HCV RNA, QN, PCR Routine 02/07/2025 11:00 AM EDT Routine screening for STI (sexually transmitted infection) SYPHILIS SCREEN Routine 02/07/2025 11:00 AM EDT Routine screening for STI (sexually transmitted infection) HIV 1/2 ANTIGEN/ANTIBODY, FOURTH GENERATION W/RFL Routine 02/07/2025 11:00 AM EDT Routine screening for STI (sexually transmitted infection) CHLAMYDIA/TRICHOMONAS /NEISSERIA GONORRHOEAE, PCR, URINE Routine 02/07/2025 11:00 AM EDT Routine screening for STI (sexually transmitted infection) from Last 3 Months Results * Chlamydia/N. Gonorrhoeae, PCR, Urine (02/07/2025 11:00 AM EDT) CT PCR, Urine NOT DETECTED Not Detect. [facility] Comment:A not detected test result does not exclude the possibilityof infection because test results can be affected byimproper specimen collection, concurrent antibiotic therapy,or the number of organisms in the specimen which may bebelow the sensitivity of the test. As with many diagnostictests, results from the Xpert CT/NG assay should beinterpreted in conjunction with other laboratory andclinical data available to the clinician.The Xpert CT/NG assay should not be used for the evaluationof suspected sexual abuse or for other medico-legalindications. Additional testing is recommended in anycircumstance when false positive or false negative resultscould lead to adverse medical, social or psychologicalconsequences. NG PCR, Urine NOT DETECTED Not Detect. [facility] Comment:A not detected test result does not exclude the possibilityof infection because test results can be affected byimproper specimen collection, concurrent antibiotic therapy,or the number of organisms in the specimen which may bebelow the sensitivity of the test. As with many diagnostictests, results from the Xpert CT/NG assay should beinterpreted in conjunction with other laboratory andclinical data available to the clinician.The Xpert CT/NG assay should not be used for the evaluationof suspected sexual abuse or for other medico-legalindications. Additional testing is recommended in anycircumstance when false positive or false negative resultscould lead to adverse medical, social or psychologicalconsequences. Urine (Urine, Random) 02/07/2025 11:00 AM EDT 02/07/2025 1:19 PM EDT Jaye Travis MD LAB URINE ORDERABLES Final Result Performing Organization Address [facility]/ZIP Co de Phone Number [facility] [address] [place] [phone] * Syphilis Screen (02/07/2025 11:00 AM EDT) Syphilis Screen Nonreactive Nonreactive [facility] Blood Venous blood specimen / Unknown 02/07/2025 11:00 AM EDT 02/07/2025 1:12 PM EDT Jaye Travis MD LAB BLOOD ORDERABLES Final Result Performing Organization Address [facility] Co de Phone Number [facility] [address] [place] [phone] * (ABNORMAL) Vitamin D, 25-Hydroxy, Total, Immunoassay (02/07/2025 11:00 AM EDT) Vitamin D 25-OH Total 21.4(L) >30 ng/mL [facility] Comment: Health Based Reference Values*< 20 ng/mL Hfhqeznic59-40 ng/mL Insufficient> 30 ng/mL Sufficient*Evelio VIVAS. N Engl J Med. 2007;357:266-280There is no well-established upper level of normal vitamin Dlevels. Some laboratories use 50 ng/mL as an upper limit ofnormal. However, toxicity is patient-dependent and may occurat any level. Careful correlation with the patient'spresentation is necessary and, if there is concern forvitamin D toxicity, treatment should be consideredirrespective of the serum level.Care must be taken in interpreting Vitamin D results fromdifferent laboratories and methodologies. Published datademonstrated that results from patients undergoinghemodialysis may show a negative bias when tested withvarious automated 25-OH vitamin D assays when compared toLC-MS/MS.When testing samples from patients whose predominant form ofVitamin D is Vitamin D2, such as patients receiving VitaminD2 supplementation, results that are subtherapeutic shouldbe confirmed with another method such as LC-MS/MS. Blood Venous blood specimen / Unknown 02/07/2025 11:00 AM EDT 02/07/2025 1:12 PM EDT Jaye Travis MD LAB BLOOD ORDERABLES Final Result Performing Organization Address [facility] Co de Phone Number [facility] [address] [place] [phone] * Vitamin B12 (Cobalamin) and Folate Panel, Serum (02/07/2025 11:00 AM EDT) Vitamin B12 465 200 - 900 pg/mL [facility] Comment:NORMAL 200-900 PG/ML INDETERMINATE 160-199 PG/ML DEFICIENT < 160 PG/ML Folate 9.1 > or = 4.0 ng/mL [facility] Comment:Reference Values:> o r = 4.0 ng/mL< 4.0 ng/mL suggests folate deficiency Methotrexate, aminopterin and folinic acid(leucovorin) are chemotherapeutic agents whose molecularstructures are similar to folate; therefore, the Architectfolate assay cannot be used for patients using these drugs. Blood Venous blood specimen / Unknown 02/07/2025 11:00 AM EDT 02/07/2025 1:12 PM EDT Jaye Travis MD LAB BLOOD ORDERABLES Final Result Performing Organization Address [facility] Co de Phone Number [facility] [address] [place] [phone] * TSH with Reflex to Free T4 (02/07/2025 11:00 AM EDT) TSH reflex Free T4 1.49 0.32 - 4.0 uIU/mL [facility] Blood Venous blood specimen / Unknown 02/07/2025 11:00 AM EDT 02/07/2025 1:12 PM EDT Jaye Travis MD LAB BLOOD ORDERABLES Final Result [facility] [address] [place] [phone] * (ABNORMAL) CBC auto differential (02/07/2025 11:00 AM EDT) Pathologist [facility] White Blood Count 4.8 4.8 - 10.8 X10*3/uL [facility] Red Blood Count 4.25 4.20 - 5.50 X10*6/uL [facility] Hemoglobin 12.2 12.0 - 16.0 g/dl [facility] Hematocrit 38.3 37.0 - 47.0 % [facility] Mean Corpuscular Volume 90.1 80.0 - 98.0 fL [facility] Mean Corpuscular Hemoglobin 28.7 27.0 - 33.0 pg [facility] Mean Corpuscular HGB Conc 31.9 31.0 - 35.0 g/dl [facility] Red Cell Distribution Width 13.6 11.0 - 16.0 % [facility] Platelet Count 298 160 - 400 X10*3/uL [facility] Mean Platelet Volume 10.5 9.4 - 12.3 fL [facility] Neutrophils Percent Auto 43.2(L) 45 - 73 % [facility] Imm Gran Pct Auto 0.2 0.0 - 0.4 % [facility] Lymphocytes Percent Auto 43.1(H) 20 - 40 % [facility] Monocytes Percent Auto 7.7 2 - 11 % [facility] Eosinophils Percent Auto 5.2(H) 0 - 4 % [facility] Basophils Percent Auto 0.6 0 - 2 % [facility] NRBC Pct Auto 0.0 0.0 - 0.2 /100WBC [facility] Neutrophils Absolute Auto 2.1 2.0 - 8.3 x10*3/uL [facility] Imm Gran Abs Auto 0.01 0.00 - 0.03 X10*3/uL [facility] Lymphocytes Absolute Auto 2.1 1.2 - 4.9 X10*3/uL [facility] Monocytes Absolute Auto 0.4 0.1 - 1.2 X10*3/uL [facility] Eosinophils Absolute Auto 0.3 0.0 - 0.4 X10*3/uL [facility] Basophils Absolute Auto 0.0 0.0 - 0.2 X10*3/uL [facility] NRBC Abs Auto 0.000 0.0 - 0.012 X10*3/uL [facility] Blood Venous blood specimen / Unknown 02/07/2025 11:00 AM EDT 02/07/2025 1:12 PM EDT Jaye Travis MD LAB BLOOD ORDERABLES Final Result Performing Organization Address [facility] Co de Phone Number [facility] [address] [place] [phone] * Hepatitis C Antibody with Reflex to HCV, RNA, Quantitative, Real-Time PCR (02/07/2025 11:00 AM EDT) Hepatitis C Antibody Nonreactive Nonreactive [facility] Comment:Antibodies to HCV no t detected; does not exclude early acuteHCV infection. Blood Venous blood specimen / Unknown 02/07/2025 11:00 AM EDT 02/07/2025 1:12 PM EDT Jaye Travis MD LAB BLOOD ORDERABLES Final Result Performing Organization Address City/[facility]/ZIP Co de Phone Number [facility] [address] [place] [phone] * Iron And Total Iron Binding Capacity (02/07/2025 11:00 AM EDT) Iron 118 30 - 160 mcg/dL [facility] Total Iron Binding Capacity 384 228 - 428 mcg/dL [facility] Percent Iron Saturation 31 15 - 50 % [facility] Unsaturated Iron Binding 266 ug/dL [facility] Blood Venous blood specimen / Unknown 02/07/2025 11:00 AM EDT 02/07/2025 1:12 PM EDT Jaye Travis MD LAB BLOOD ORDERABLES Final Result [facility] [address] [place] [phone] * HIV-1/2 Antigen and Antibodies, Fourth Generation, with Reflexes (02/07/2025 11:00 AM EDT) Pathologist [facility] HIV AB/AG Nonreactive Nonreactive [facility] Comment:HIV-1 p24 Ag and/or HIV-1/HIV-2 Ab not detected.A test result that is nonreactive does not exclude thepossibility of exposure to or infection with HIV-1 and/orHIV-2. Nonreactive results in this assay for individualswith prior exposure to HIV-1 and/or HIV-2 may be due toantigen and antibody levels that are below the limit ofdetection of this assay.The [employer] HIV Ag/Ab Combo assay result andsupplemental assay results should be interpreted inconjunction with the patient's clinical presentation,history and other laboratory results. If the results areinconsistent with clinical evidence, additional testing issuggested to confirm the result. Blood Venous blood specimen / Unknown 02/07/2025 11:00 AM EDT 02/07/2025 1:12 PM EDT Jaye Travis MD LAB BLOOD ORDERABLES Final Result [facility] [address] [place] [phone] * Ferritin (02/07/2025 11:00 AM EDT) Ferritin 12 10 - 122 ng/mL [facility] Blood Venous blood specimen / Unknown 02/07/2025 11:00 AM EDT 02/07/2025 1:12 PM EDT Jaye Travis MD LAB BLOOD ORDERABLES Final Result Performing Organization Address [facility] Co de Phone Number [facility] [address] [place] [phone] * Lipid Panel, Standard (02/07/2025 11:00 AM EDT) Triglycerides 29 <150 mg/dL [facility] Comment:Desirable Triglyceri de: less than 150 mg/dLBorderline High Triglyceride 150-199 mg/dLHigh Triglyceride: 200-499 mg/dLVery High Triglyceride: greater than or equal to 5OO mg/dL Cholesterol 175 <200 mg/dL [facility] Comment:Desirable Cholestero l: less than 200 mg/dLBorderline High Cholesterol: 200-239 mg/dLHigh Cholesterol: greater than 239 mg/dL LDL Cholesterol Calculated 91 <100 mg/dL [facility] Comment:Desirable LDL: less than 100 mg/dLNear Optimal/Above Optimal LDL: 110- 129 mg/dLBorderline High LDL: 130-159 mg/dLHigh LDL: 160-189 mg/dLVery High LDL: greater than or equal to 190 mg/dL HDL Cholesterol 79 >40 mg/dL [facility] Comment:Desirable HDL: great er than 40 mg/dL Note: This HDL assay may give artificially low results in patients with liver disease. Blood Venous blood specimen / Unknown 02/07/2025 11:00 AM EDT 02/07/2025 1:12 PM EDT Jaye Travis MD LAB BLOOD ORDERABLES Final Result Performing Organization Address [facility] Co de Phone Number [facility] [address] [place] [phone] * (ABNORMAL) Basic Metabolic Panel (02/07/2025 11:00 AM EDT) Sodium 138 135 - 145 mmol/L [facility] Potassium 4.0 3.3 - 5.1 mmol/L [facility] Chloride 104 96 - 108 mmol/L [facility] Carbon Dioxide 28 22 - 29 mmol/L [facility] Anion Gap 10(L) 12 - 20 [facility] Urea Nitrogen (BUN) 21(H) 9 - 16 mg/dL [facility] Creatinine, Serum 0.65 0.5 - 1.4 mg/dL [facility] Estimated Glomerular Filt Rate >60 [facility] Comment:Chronic Kidney Disea se: Estimated GFR < 60 mL/min/[id number] Kidney Disease: Estimated GFR < 15 mL/min/1.73m2 Glucose 76 60 - 115 mg/dL [facility] Calcium 9.5 8.4 - 10.2 mg/dL [facility] Blood Venous blood specimen / Unknown 02/07/2025 11:00 AM EDT 02/07/2025 1:12 PM EDT Jaye Travis MD LAB BLOOD ORDERABLES Final Result Performing Organization Address [facility] Co de Phone Number [facility] [address] [place] [phone] from Last 3 Months Insurance [employer] [facility] ST[employer] [facility] [employer] Advance Directives Documents on File Type Date Recorded Patient Real Estate Analyst Expl anation Advance Directives and Living Will 02/12/2025 Health Care Proxy 02/07/25 Care Teams Rn Ambulatory Relationship Specialty Start Date End Date [place], MD Jaye [address] [place] [phone] PCP - General Family Medicine 06/13/18
== END 2025-03-01 14:03 | disposition home or self-care (01) ==
LOC: HO.HOS 13:37
PROVIDERS: Visit Provider Physician Assistant
DX: M75.102 Unspecified rotator cuff tear or rupture of left shoulder, not specified as traumatic (principal)
CPT/HCPCS: 99203

== ENCOUNTER → 2025-03-01 13:37 | Outpatient (BNVA) | payer MEDICAID, SELFPAY | PROVIDERS: Visit Provider Physician Assistant | DX: M75.102 Unspecified rotator cuff tear or rupture of left shoulder, not specified as traumatic (principal) | CPT/HCPCS: 99202; 99212 ==

== ENCOUNTER 2025-04-03 13:06 | Outpatient (REF) | payer MEDICAID, SELFPAY ==
--- NOTE | 2025-04-03 13:19 | EMG_ITS ---
Chief complaint: 2-3 days of left shoulder pain that turned into numbness on left shoulder, pectoralis and hand, back in November 2024. It is now all resolved. Denies any weakness. Denies any atrophy. Reason for referral: Evaluate for thoracic outlet syndrome Referred by: Issa CHAIDEZ Procedure done: Left upper extremity NCS/EMG Precautions and/or limitations: None The limb temperature was monitored continuously and remained between 32-36 degrees C during the performance of the NCS. Nerve Conduction Studies Anti Sensory Summary Table ?Stim Site NR Onset (ms) Norm Onset (ms) Peak (ms) Norm Peak (ms) O-P Amp (?V) Norm O-P Amp Site1 Site2 Delta-0 (ms) Dist (cm) Eder (m/s) Norm Eder (m/s) Left Median Anti Sensory (2nd Digit) Wrist ? 2.6 3.3 <3.6 34.6 >10 Wrist 2nd Digit 2.6 14.0 54 Left Radial Anti Sensory (Thumb) Forearm ? 1.9 2.7 <3.1 26.0 Forearm Thumb 1.9 0.0 Left Ulnar Anti Sensory (5th Digit) Wrist ? 2.7 3.5 <3.7 37.0 >15.0 Wrist 5th Digit 2.7 14.0 52 Motor Summary Table ?Stim Site NR Onset (ms) Norm Onset (ms) O-P Amp (mV) Norm O-P Amp iAmp (mV) Amp (1st) (%) Site1 Site2 Delta-0 (ms) Dist (cm) Eder (m/s) Norm Eder (m/s) Left Median Motor (Abd Poll Brev) Wrist ? 3.4 <3.9 9.7 >4.5 11.7 100.0 Elbow Wrist 3.9 20.0 51 >45 Elbow ? 7.3 10.0 12.0 103.1 Left Ulnar Motor (Abd Dig Minimi) Wrist ? 3.0 <3.0 9.1 >5 9.3 100.0 B Elbow Wrist 3.1 18.5 60 >45 B Elbow ? 6.1 6.4 6.6 70.3 A Elbow B Elbow 1.4 10.0 71 >45 A Elbow ? 7.5 6.4 6.6 70.3 EMG ?Side Muscle Nerve Root Ins Act Fibs Psw Amp Dur Poly Recrt Int Pat Comment Left 1stDorInt Ulnar C8-T1 Nml Nml Nml Nml Nml 0 Nml Complete Left FlexCarRad Median C6-7 Nml Nml Nml Nml Nml 0 Nml Complete Left Biceps Musculocut C5-6 Nml Nml Nml Nml Nml 0 Nml Complete Left Triceps Radial C6-7-8 Nml Nml Nml Nml Nml 0 Nml Complete Left Deltoid Axillary C5-6 Nml Nml Nml Nml Nml 0 Nml Complete Paraspinal EMG ?Side Muscle Nerve Root Ins Act Fibs Psw Comment Left Cervical Upper Rami Nml Nml Nml Left Cervical Mid Rami Nml Nml Nml Left Cervical Lower Rami Nml Nml Nml FINDINGS: All motor and sensory nerves tested showed normal latencies, amplitudes and conduction velocities. Concentric needle EMG was performed in selected muscles of the left upper extremity and cervical paraspinals. Study did not reveal signs of electric abnormalities as shown in the table above. IMPRESSION: 1. This is a normal study. 2. There is no electrodiagnostic evidence for median neuropathy, ulnar neuropathy, brachial plexopathy, or cervical radiculopathy. Thank you for your kind referral. Ligia Garcia MD, CHASITY Board Certified, [place] [employer] and [employer] (ABPMR) Board Certified, [place] [employer] Electrodiagnostic Medicine (ABEM) CODIN [id number], 1 extremity MTDD
--- OUTSIDE RECORDS SUMMARY | 2025-04-03 18:24 | XMS_ITS | Clinical Summary ---
Author Organization [employer] Address [address] [facility] [address] [place] [address] Care Team Providers Care Oil Painter Name Role Phone Jaye Travis MD Primary Care Provider [phone] Allergies No known active allergies Medications montelukast (Singulair) 10 MG tabletIndication s:Allergic rhinitis, unspecified seasonality, unspecified trigger TAKE 1 TABLET BY MOUTH EVERY DAY 90 tablet 3 3 Active D3-1000 25 MCG (1000 UT) capsule TAKE 1 CAPSULE BY MOUTH EVERY DAY 90 capsule 3 3 Active cetirizine (ZyrTEC) 10 MG tabletIndication s:Sore throat Take 1 tablet (10 mg) by mouth Once per day. 30 tablet 5 Active fluticasone (Flonase) 50 MCG/ACT nasal sprayIndications :Sore throat Administer 1 spray into each nostril Once per day. Shake gently. Before first use, prime pump. After use, clean tip and replace cap. 16 g 5 Active lidocaine (Lidoderm) 5 % patchIndications :Chronic left shoulder pain Apply 1 patch topically Once per day. Remove & discard patch within 12 hours or as directed by . 30 patch 11 5 Active cholecalciferol (Vitamin D-3) 50 MCG (2000 UT) capsuleIndicatio ns:Vitamin D deficiency Take 1 capsule (50 mcg) by mouth Once per day. 90 capsule 3 5 Active Active Problems Problem Noted Date Diagnosed Date Wears glasses 02/07/2025 Assessment & Plan (02/07/2025 2:08 PM EDT): Orders: Referral to [facility]; Future Vitamin D deficiency 02/07/2025 Overview (02/07/2025): Lab Results Component Value Date [id number] 21.4 (L) 02/07/2025 -daily vit d started 02/06/25 Assessment & Plan (02/07/2025 2:08 PM EDT): Lab Results Component Value Date [id number] 21.4 (L) 02/07/2025 -daily vit d started [...] Etiology, likely viral URI, nothing to suggest Merrick at the moment , aside from mild right sided cervical lymphadenopathy Rapid Covid, Strep and Flu negative. Plan: supportive measures, tylenol, antihistaminics, throat lozenges. Excise for work given Other specified health status 11/24/2022 Overview (02/07/2025): -next comprehensive annual evaluation due after 02/07/26 -referred to [facility] 02/07/25 -dental home is encouraged. Will get in with [facility]. -ashleigh care proxy given and filed 02/07/25 Assessment & Plan (02/07/2025 2:08 PM EDT): -next comprehensive annual evaluation due after 02/07/26 -referred to [facility] 02/07/25 -dental home is encouraged. Will get in with [facility]. -ashleigh care proxy given and [...] Description 02/07/2025 10:00 AM EDT Office Visit [facility] [address] [place] [phone] Jaye Travis MD Elective mutism (Primary Dx); Chronic left shoulder pain; Abdominal bloating; Postural dizziness with presyncope; Food intolerance; Seasonal allergies; Vitamin D deficiency; Wears glasses; Screening for cholesterol level; Screening for diabetes mellitus; Routine screening for STI (sexually transmitted infection); Other specified health status 02/07/2025 Results Follow-Up [facility] [address] [place] [phone] Jaye Travis MD Basic Metabolic Panel, Lipid Panel, Standard, CBC auto differential, Additional followed-up results: 4 02/07/2025 Travel 01/31/2025 Travel 01/30/2025 Patient Outreach [facility] [address] [place] [phone] Jaye Travis MD Pre-visit Planning (Pre-visit planning - LVM ) from Last 3 Months Family History Medical [...] Description 08/01/2025 9:30 AM EST Office Visit [facility] [address] [place] [address] Francoise Cortez, OD [address] [place] [address] Health Maintenance Due Date Last Done Comments Chlamydia and Gonorrhea Screening 2004 Family Planning (PISQ) 12/09/2019 Meningococcal B Vaccine (1 of 2 - Standard) 2020 COVID-19 Vaccine ( season) 2025 Influenza Vaccine (#1) 2025 , [...] CT PCR, Urine NOT DETECTED Not Detect. [facility] Comment:A not detected test result [...] NG PCR, Urine NOT DETECTED Not Detect. [facility] Comment:A not detected test result [...] Travis MD LAB URINE ORDERABLES Final Result [facility] [address] [place] [address] [phone] * Syphilis Screen (02/07/2025 11:00 AM EDT) Syphilis Screen Nonreactive Nonreactive [facility] Blood Venous blood specimen / Unknown 02/07/2025 11:00 AM EDT 02/07/2025 1:12 PM EDT Jaye Travis MD LAB BLOOD ORDERABLES Final Result Performing Organization Address [facility] Co de Phone Number [facility] [address] [place] [address] [phone] * (ABNORMAL) Vitamin D, 25-Hydroxy, Total, Immunoassay (02/07/2025 11:00 AM EDT) Vitamin D 25-OH Total 21.4(L) >30 ng/mL [facility] Comment: Health Based Reference Values*< 20 ng/mL [id number] ng/mL Insufficient> 30 ng/mL Sufficient*Evelio VIVAS. N [...] BLOOD ORDERABLES Final Result Performing Organization Address [facility]/ZIP Co de Phone Number [facility] [address] [place] [phone] * Vitamin B12 (Cobalamin) and Folate Panel, Serum (02/07/2025 11:00 AM EDT) Vitamin B12 465 200 - 900 pg/mL [facility] Comment:NORMAL 200-900 PG/ML INDETERMINATE 160-199 PG/ML DEFICIENT < 160 PG/ML Folate 9.1 > or = 4.0 ng/mL [facility] Comment:Reference Values:> o r = [...] BLOOD ORDERABLES Final Result Performing Organization Address [facility] Co de Phone Number [facility] [address] [place] [phone] * TSH with Reflex to Free T4 (02/07/2025 11:00 AM EDT) TSH reflex Free T4 1.49 0.32 - 4.0 uIU/mL [facility] Blood Venous blood specimen / Unknown 02/07/2025 11:00 AM EDT 02/07/2025 1:12 PM EDT Jaye Travis MD LAB BLOOD ORDERABLES Final Result Performing Organization Address City/[facility]/ZIP Co de Phone Number [facility] [address] [place] [phone] * (ABNORMAL) CBC auto differential (02/07/2025 11:00 AM EDT) White Blood Count 4.8 4.8 - 10.8 X10*3/uL [facility] Red Blood Count 4.25 4.20 - 5.50 X10*6/uL [facility] Hemoglobin 12.2 12.0 - 16.0 g/dl [facility] Hematocrit 38.3 37.0 - 47.0 % [facility] Mean Corpuscular Volume 90.1 80.0 - 98.0 fL [facility] Mean Corpuscular Hemoglobin 28.7 27.0 - 33.0 pg [facility] Mean Corpuscular HGB Conc 31.9 31.0 - 35.0 g/dl [facility] Red Cell Distribution Width 13.6 11.0 - 16.0 % [facility] Platelet Count 298 160 - 400 X10*3/uL [facility] Mean Platelet Volume 10.5 9.4 - 12.3 fL [facility] Neutrophils Percent Auto 43.2(L) 45 - 73 % [facility] Imm Gran Pct Auto 0.2 0.0 - 0.4 % [facility] Lymphocytes Percent Auto 43.1(H) 20 - 40 % [facility] Monocytes Percent Auto 7.7 2 - 11 % [facility] Eosinophils Percent Auto 5.2(H) 0 - 4 % [facility] Basophils Percent Auto 0.6 0 - 2 % [facility] NRBC Pct Auto 0.0 0.0 - 0.2 /100WBC [facility] Neutrophils Absolute Auto 2.1 2.0 - 8.3 x10*3/uL [facility] Imm Gran Abs Auto 0.01 0.00 - 0.03 X10*3/uL [facility] Lymphocytes Absolute Auto 2.1 1.2 - 4.9 X10*3/uL [facility] Monocytes Absolute Auto 0.4 0.1 - 1.2 X10*3/uL [facility] Eosinophils Absolute Auto 0.3 0.0 - 0.4 X10*3/uL [facility] Basophils Absolute Auto 0.0 0.0 - 0.2 X10*3/uL [facility] NRBC Abs Auto 0.000 0.0 - 0.012 X10*3/uL [facility] Blood Venous blood specimen / Unknown 02/07/2025 11:00 AM EDT 02/07/2025 1:12 PM EDT Jaye Travis MD LAB BLOOD ORDERABLES Final Result Performing Organization Address [facility]/ZIP Co de Phone Number [facility] [address] [place] [phone] * Hepatitis C Antibody with Reflex to HCV, RNA, Quantitative, Real-Time PCR (02/07/2025 11:00 AM EDT) Hepatitis C Antibody Nonreactive Nonreactive [facility] Comment:Antibodies to HCV no t detected; does not exclude early acuteHCV infection. Blood Venous blood specimen / Unknown 02/07/2025 11:00 AM EDT 02/07/2025 1:12 PM EDT Jaye Travis MD LAB BLOOD ORDERABLES Final Result Performing Organization Address [facility] Co de Phone Number [facility] [address] [place] [phone] * Iron And Total Iron Binding Capacity (02/07/2025 11:00 AM EDT) Iron 118 30 - 160 mcg/dL [facility] Total Iron Binding Capacity 384 228 - 428 mcg/dL [facility] Percent Iron Saturation 31 15 - 50 % [facility] Unsaturated Iron Binding 266 ug/dL [facility] Blood Venous blood specimen / Unknown 02/07/2025 11:00 AM EDT 02/07/2025 1:12 PM EDT Jaye Travis MD LAB BLOOD ORDERABLES Final Result Performing Organization Address [facility]/ZIP Co de Phone Number [facility] [address] [place] [phone] * HIV-1/2 Antigen and Antibodies, Fourth Generation, with Reflexes (02/07/2025 11:00 AM EDT) HIV AB/AG Nonreactive Nonreactive [facility] Comment:HIV-1 p24 Ag and/or HIV-1/HIV-2 Ab not detected.A test result that is nonreactive does not exclude thepossibility of exposure to or infection with HIV-1 and/orHIV-2. Nonreactive results in this assay for individualswith prior exposure to HIV-1 and/or HIV-2 may be due toantigen and antibody levels that are below the limit ofdetection of this assay.The Spinzo HIV Ag/Ab Combo assay result andsupplemental assay results should be interpreted inconjunction with the patient's clinical presentation,history and other laboratory results. If the results areinconsistent with clinical evidence, additional testing issuggested to confirm the result. Blood Venous blood specimen / Unknown 02/07/2025 11:00 AM EDT 02/07/2025 1:12 PM EDT Jaye Travis MD LAB BLOOD ORDERABLES Final Result Performing Organization Address [facility] Co de Phone Number [facility] [address] [place] [phone] * Ferritin (02/07/2025 11:00 AM EDT) Ferritin 12 10 - 122 ng/mL [facility] Blood Venous blood specimen / Unknown 02/07/2025 11:00 AM EDT 02/07/2025 1:12 PM EDT Jaye Travis MD LAB BLOOD ORDERABLES Final Result Performing Organization Address City/[facility] Co de Phone Number [facility] [address] [place] [address] [phone] * Lipid Panel, Standard (02/07/2025 11:00 AM EDT) Triglycerides 29 <150 mg/dL [facility] Comment:Desirable Triglyceri de: less than 150 mg/dLBorderline High Triglyceride 150-199 mg/dLHigh Triglyceride: 200-499 mg/dLVery High Triglyceride: greater than or equal to 5OO mg/dL Cholesterol 175 <200 mg/dL [facility] Comment:Desirable Cholestero l: less than 200 mg/dLBorderline High Cholesterol: 200-239 mg/dLHigh Cholesterol: greater than 239 mg/dL LDL Cholesterol Calculated 91 <100 mg/dL [facility] Comment:Desirable LDL: less than 100 mg/dLNear Optimal/Above Optimal LDL: 110- 129 mg/dLBorderline High LDL: 130-159 mg/dLHigh LDL: 160-189 mg/dLVery High LDL: greater than or equal to 190 mg/dL HDL Cholesterol 79 >40 mg/dL [facility] Comment:Desirable HDL: great er than 40 mg/dL Note: This HDL assay may give artificially low results in patients with liver disease. Blood Venous blood specimen / Unknown 02/07/2025 11:00 AM EDT 02/07/2025 1:12 PM EDT Jaye Travis MD LAB BLOOD ORDERABLES Final Result [facility] [address] [place] [address] [phone] * (ABNORMAL) Basic Metabolic Panel (02/07/2025 11:00 AM EDT) Sodium 138 135 - 145 mmol/L [facility] Potassium 4.0 3.3 - 5.1 mmol/L [facility] Chloride 104 96 - 108 mmol/L [facility] Carbon Dioxide 28 22 - 29 mmol/L [facility] Anion Gap 10(L) 12 - 20 [facility] Urea Nitrogen (BUN) 21(H) 9 - 16 mg/dL [facility] Creatinine, Serum 0.65 0.5 - 1.4 mg/dL [facility] Estimated Glomerular Filt Rate >60 [facility] Comment:Chronic Kidney Disea se: Estimated GFR < 60 mL/min/[id number] Kidney Disease: Estimated GFR < 15 mL/min/1.73m2 Glucose 76 60 - 115 mg/dL [facility] Calcium 9.5 8.4 - 10.2 mg/dL [facility] Blood Venous blood specimen / Unknown 02/07/2025 11:00 AM EDT 02/07/2025 1:12 PM EDT us Jaye Travis MD LAB BLOOD ORDERABLES Final Result [facility] [address] [place] [address] [phone] from Last [address] [place] [address] [place] [address] C3 [facility] STANDARD [facility] C3 Advance Directives Documents on File Type Date Recorded Patient Night Shift Expl anation Advance Directives and Living Will 02/12/2025 Health Care Proxy 02/07/25 Care Teams Oil Painter Relationship Specialty Start Date End Date Jaye Travis MD [address] [place] [address] PCP - General Family Medicine 06/13/18
== END 2025-04-03 13:07 | disposition home or self-care (01) ==
LOC: HO.NEURO 13:06
PROVIDERS: PCP Family Medicine; Visit Provider Physician Assistant
DX: G54.0 Brachial plexus disorders (principal)
CPT/HCPCS: 95886; 95909

== ENCOUNTER → 2025-04-03 13:19 | Outpatient (BNV) | payer MEDICAID, SELFPAY | PROVIDERS: PCP Family Medicine; Visit Provider Physical Medicine & Rehabilitation | DX: M25.512 Pain in left shoulder (principal); R20.2 Paresthesia of skin | CPT/HCPCS: 95886; 95909 ==

== ENCOUNTER 2025-04-09 10:50 | Outpatient (RCR) | payer MEDICAID, SELFPAY ==
--- NOTE | 2025-03-22 15:28 | MHC.PT.EP ---
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 OBJECTIVE FINDINGS: DECR POSTURE, SCAP WINGING-> POST RC/ SCAP MM STRENGTH DEFICITS, ? SCOLIOSIS (+) LEFT ANT UPPER RIBS/ STERNAL JUNCTION/ CREATING THOR ROTAT Rt, LIMITED ROM Lt SH (PAINFUL ARC ABD 130*-160*); (-) INSTABILITY- ALTHOUGH MILD SORENESS AT END RANGE APPREHENSION, AND FLUCTUATING PAIN IN HER Lt SH. FUNCTIONALLY, SHE IS LIMITED W SLEEP, ADLs REQ Lt UE EFFORT, AND LIFTING W LEFT ARM. Frequency and Duration: The patient will be seen 2 x WK x 5 WKS Short Term Goals: DECR Lt SH PAIN TO 2-3/10 INITIATE HEP Pt IMPROVE HER POSTURAL AWARENESS TO REDUCE Lt SH COMPLEX STRESS Pt ESTER WNL Lt SH AROM Half-Way Goals: Pt INDEP W HEP AND SELF SX MGMT TECHN Pt ESTER IMPROVED FUNCT MOB YARON -> IMPROVED SPADI 62/130 Lt SH STRENGTH INCR BY AT LEAST 1 GRADE Treatment Plan: Modalities to reduce pain, spasms and effusion. Manual therapy to restore motion and function. Therapeutic exercise to improve strength and flexibility. Neuromuscular re-education for posture and balance. Therapeutic activities to return to functional activities of daily living. Electronically signed by: RHONDA ORANTESPT Please sign and return to therapist. Thank you for your referral.
--- NOTE | 2025-04-18 10:56 | MHC.PT.DC ---
[facility] [place] [facility] [place] [facility] [place] [facility] [address] Valeria Brumfield [address] [phone] F: [phone] F: [phone] F: [phone] F: [phone] Physical Therapy Discharge Report Diagnosis: PAINFUL ARC SYNDROME LEFT SHOULDER Date of Surgery: Date of Evaluation: 03/22/25 Date of Discharge: 04/18/25 Treatments to Date: 4 Cancellations to Date: 2 No Shows to Date: 3 Discharge Status: Patient Elected to Stop Visit Non-compliance Discharge Summary: TAHIR IS DISCHARGED THIS DATE FROM PT DUE TO POOR ATTENDANCE FOR SCHED PT APPTS- A FORMAL REASSESSMENT WAS NOT PERF SHE DID NOT ATTEND LAST APPTs ESPEC.. TAHIR WAS CO-TREATED W ANAY, MODERATE EDUCATION WAS PROVIDED TO THE Pt REGARDING ALTERING HER GYM WORKOUTS AND PUTTING HER FOCUS ON HER EXER IN PT, WHICH WERE CUSTOMIZED TO ADDRESS SOFT TISSUE AND MECHANICAL IMBALANCES IN HER TRUNK AND SHOULDER- SHE HAD DECR COMPLOANCE W HEP AND DID NOT REPORT CHANGE IN HER SH SXS- I ENCOURAGED THE Pt TO F/U W HER PRIMARY MD TO ADDRESS HER STERNAL/ UPPER TRUNK ? SCOLIOTIC INFLUENCE. AT HER LKAST ATTENDED PT SESSION, MY COLLEAGUE, Oumar'S NOTE MENTIONED We discussed the importance of trying to break the pain cycle and how consistently performing activities that flare up her pain are not going to help her director long term care. She mentioned not being compliant w/ HEP which I educated her is designed for her based on her pain and what she is expected to do. pt did not verbalize any response. SHE IS D/C THIS DATE FROM PT, SHE DID NOT MEET HER PT GOALS. Electronically signed by: RHONDA ORANTES,PT Please sign and return to therapist. Thank you for your referral.
== END 2025-04-18 10:56 | disposition home or self-care (01) ==
LOC: HO.PT 10:50
PROVIDERS: PCP Family Medicine; Visit Provider Physician Assistant
DX: M75.102 Unspecified rotator cuff tear or rupture of left shoulder, not specified as traumatic (principal)
CPT/HCPCS: 97110; 97140; 97162; 97530

== ENCOUNTER 2025-05-17 08:26 | Outpatient (AMB) | payer MEDICAID, SELFPAY ==
--- NOTE | 2025-05-17 08:45 | A.OFFVIS_ITS ---
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 The pain has been present for approximately two years and has been worsening since November of this year. 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 In the past, she experienced associated numbness and tingling across her shoulder and chest. She has previously tried cooling and heating pads, Tylenol, and NSAIDs without obtaining relief. Previous workup includes a normal left shoulder X-ray and an EMG, which showed no evidence of neuropathy, plexopathy, or radiculopathy. She completed five visits of physical therapy for painful arc syndrome of the left side but discontinued it as it was not helpful. She continues to perform a home exercise program and gym exercises, which she reports make the pain worse, and the pain persists with movement and at rest. Pain Description - Location: The pain is located in the front of the left shoulder. - Onset and Duration: The pain has been present for about two years. - Progression: The pain has been worsening since this past November. - Associated Symptoms: The patient reports a history of numbness and tingling across her shoulder and chest. - Exacerbating Factors: Pain is worse with heavy lifting at work and with gym exercises. - Relieving Factors: The patient has tried cooling and heating pads, Tylenol, and NSAIDs without relief. - Interference with Activities: The pain interferes with her work, which involves repetitive motion and heavy lifting, and her gym workouts. Physical Exam - Musculoskeletal: Patient localizes pain to the anterior aspect of the left shoulder. - Repetitive ROM evokes pain. Results - Left shoulder X-ray: Normal. - EMG: Normal latencies and amplitudes, with no evidence of neuropathy, plexopathy, or radiculopathy. Pain Management - Analgesia: The patient has previously tried Tylenol and NSAIDs without relief. - Activities of Daily Living: The patient's pain is exacerbated by heavy lifting at her job, which involves packing and distribution, as well as by exercises at the gym. [facility] Medical History No pertinent past medical history Social History (Updated 03/01/25 @ 13:47 by Janina Powell) Household Members Other:: Lives with mom, dad, sister Patient Tobacco Use Status: Never used Tobacco Current occupational status: employed Current occupation: Warehouse/ lifting and packing totes. Right hand dominant Physical Exam Vital Signs: Last Vital Signs Pulse 72 05/17/25 08:47 Resp 16 05/17/25 08:47 BP 107/59 L 05/17/25 08:47 Pulse Ox 98 05/17/25 08:47 Oxygen Delivery Method Room Air 05/17/25 08:47 BMI result Body Mass Index 20.5 Assessment & Plan Assessment & Plan (1) Painful arc syndrome of left shoulder: Code(s): M75.102 - Unspecified rotator cuff tear or rupture of left shoulder, not specified as traumatic Category: Medical Plan Plan Patient was informed and verbally consented to the use of an ambient scribe for clinic note documentation during this visit. 1. Left Shoulder Pain - The etiology of the patient's chronic left shoulder pain remains unclear with a normal X-ray and EMG. - Given the persistence of symptoms for over two years and failure of conservative measures including physical therapy, Tylenol, and NSAIDs, further investigation is warranted. - An MRI of the left shoulder will be ordered to evaluate the rotator cuff and other soft tissue structures. - The patient will follow up after the MRI is completed to review the findings and discuss appropriate interventions. Discussion Notes I discussed with the patient and her mother that the cause of her chronic left shoulder pain is unclear, as her prior workup, including an X-ray and EMG, was normal. I explained that the next step is to obtain an MRI of her left shoulder to better visualize the rotator cuff and other structures, which will help determine the underlying issue. I informed her that the radiology department will contact her to schedule the MRI. I instructed her to call the office to schedule a follow-up appointment a few days after the MRI is performed so we can review the results and plan the next steps for intervention. I confirmed that she has no metal implants, and both she and her mother indicated they understood the plan and had no further questions. Patient Instructions - An MRI scan of your left shoulder will be ordered to help figure out the cause of your pain. - You will receive a phone call from the radiology department to schedule your MRI appointment. - After you have a date for your MRI, please call our office to schedule a follow-up visit with me for a couple of days after the scan. - During your follow-up visit, we will review the MRI results together and discuss the next steps for your treatment. Orders: Orders MR shoulder LT wo con 05/17/25 M75.102 - Unspecified rotator cuff tear or rupture of left shoulder, not specified as traumatic Coding Level of Care Code New Pt Level 4 (49674) Diagnoses Painful arc syndrome of left shoulder M75.102
[2025-05-17 08:47] VITALS: BP 107/59; PULSE 72; RESP 16; O2SAT 98; BMI 20.5
== END 2025-05-17 09:26 | disposition home or self-care (01) ==
LOC: HO.PMC 08:26
PROVIDERS: PCP Family Medicine; Visit Provider Internal Medicine
DX: M75.102 Unspecified rotator cuff tear or rupture of left shoulder, not specified as traumatic (principal)
CPT/HCPCS: 99204

== ENCOUNTER → 2025-05-17 08:26 | Outpatient (BNVA) | payer MEDICAID, SELFPAY | PROVIDERS: PCP Family Medicine; Visit Provider Internal Medicine | DX: M75.102 Unspecified rotator cuff tear or rupture of left shoulder, not specified as traumatic (principal) | CPT/HCPCS: 99202 ==

== ENCOUNTER 2025-06-01 18:46 | Emergency (ER) | payer MEDICAID, SELFPAY ==
[2025-06-01 18:52] VITALS: BP 113/54; PULSE 106; RESP 18; TEMP 36.4; O2SAT 97; BMI 21.6
--- NOTE | 2025-06-01 18:52 | ED_ITS ---
HPI - URI/Sore Throat General Chief Complaint: General Medical Stated Complaint: sore throat Time Seen by Provider: 06/01/25 19:36 Source: patient Mode of arrival: ambulatory Limitations: no limitations History of Present Illness ED Provider: Tyra Bustillos APRN HPI Narrative: 19yo female with no medical history here with complaints of body aches, congestion, chills, sore throat since 1am. No chest pain, shortness of breath, skin rash, neck stiffness/pain, abdominal pain, vomiting, diarrhea, cough. No recent travel. Siblings have influenza A. Related Data Home Medications ?Medication ?Instructions ?Recorded ?Confirmed cholecalciferol (vitamin D3) 25 25 mcg PO DAILY 05/17/25 mcg (1,000 unit) capsule Previous Rx's ?Medication ?Instructions ?Recorded acetaminophen 325 mg tablet 650 mg (2 x 325 mg) PO Q4H PRN 06/01/25 (Tylenol) fever or pain #60 tabs ibuprofen 600 mg tablet 600 mg PO Q6H PRN fever or p ain 06/01/25 #30 tabs Allergies Allergy/AdvReac Type Severity Reaction Status Date / Time No Known Allergies (No Known Allergy Verified 06/01/25 18:54 Allergies*) Review of Systems Review of Systems: Yes all other systems are reviewed and are negative Constitutional: Constitutional: Reports no additional constitutional complaints, Reports body ache(s), Reports chills, Denies fever(s), Denies headache(s) and Denies weakness Eyes: Eyes: Reports no additional eye complaints and Denies change in vision ENT: Reports system reviewed and no additional complaints, except as documented, Denies dizziness, Denies headache(s), Reports nasal congestion, Denies nasal discharge, Denies neck pain and Reports sore throat Cardiovascular: Cardiovascular: Reports no additional cardiovascular complaints, Denies chest pain, Denies leg edema and Denies dyspnea Respiratory: Respiratory: Reports no additional respiratory complaints, Denies cough and Denies dyspnea Gastrointestinal: Gastrointestinal: Reports no additional gastrointestinal complaints, Denies abdominal pain, Denies diarrhea, Denies nausea and Denies vomiting Genitourinary: Genitourinary: Reports no additional female genitourinary complaints and Denies urinary incontinence Musculoskeletal: Musculoskeletal: Reports no additional musculoskeletal complaints, Denies back pain, Denies arthralgias, Denies joint swelling, Denies neck pain, Denies numbness and Denies tingling Integumentary/Breasts: Skin/Breast: Reports system reviewed and no additional complaints, except as docu and Denies rash Neurologic: Reports system reviewed and no additional complaints, except as documented, Denies Abnormal speech present, Denies dizziness, Denies headache(s), Denies numbness, Denies tingling and Denies weakness PMFSH Past Medical History Attestation statement: The following information was validated with the patient. Source: old records reviewed and nursing notes reviewed Medical History No pertinent past medical history Social History Social History Household Members Other:: Lives with mom, dad, sister Patient Tobacco Use Status: Never used Tobacco Do you have a plan to hurt others: No Plan Current occupational status: employed Current occupation: Warehouse/ lifting and packing totes. Right hand dominant Physical Exam Vital Signs: Vital Signs: Last Vital Signs Temp 97.6 F 06/01/25 18:52 Pulse 106 H 06/01/25 18:52 Resp 18 06/01/25 18:52 BP 113/54 L 06/01/25 18:52 Pulse Ox 97 06/01/25 18:52 O2 Del Method Room Air 06/01/25 18:52 BMI result Body Mass Index 21.6 Const: General: cooperative, healthy appearing, comfortable and no acute distress Orientation/consciousness: patient oriented x3 Limitations: no limitations HEENT: Head: Yes normal to inspection Ears: hearing grossly normal bilaterally and TM's normal bilaterally General nose exam: Normal external nose present Face and sinus: Yes normal facial exam Mouth: Normal oral and palatal mucosa present Throat: Yes posterior oropharynx normal, Yes tonsils normal and Yes uvula midline Eyes: General: appearance normal, both eyes and all related structures Pupils: Equal, round and reactive pupils present Neck: Neck: Yes normal visual inspection, Yes full ROM, Yes no lymphadenopathy and Yes no meningeal signs Chest: Chest palpation & inspection: normal inspection of the chest Resp: Effort & Inspection: normal respiratory effort Auscultation: clear to auscultation bilaterally Cardio: Rate: regular rate Rhythm: regular rhythm Peripheral pulses: Peripheral pulses 2+ throughout GI: Inspection: Yes normal to inspection Palpation (GI): Soft to palpation and nontender Auscultation: normal bowel sounds Back/Spine/Pelvis: Thoracic/Lumbar Spine: thoracic and lumbar spine normal to inspection Skin: General skin exam: no rashes or lesions noted Neuro: General: patient oriented x3, no meningeal signs, no focal motor deficits and normal sensation to monofilament Cranial nerves: Yes Equal, round and reactive pupils present Cognition (Neuro): normal cognition Speech: No Abnormal speech present Gait exam (Neuro): Normal gait present Motor exam (neuro): 5/5 motor strength present throughout Extrem: General: Yes normal to inspection Course Course Course Narrative: Tyra Bustillos [employer] CONSULTANT 06/01 1852 This is a rapid medical exam. Deferred additional HPI, ROS, PE to primary provider. 19yo female with no known medical history with cough, body aches, sore throat, fever x 1 days. Will send viral testing, strep testing. VSS Reevaluation(s) Reevaluation #1: influenza a positive. Reviewed supportive measures at home. Discussed Tamiflu. Family declined. Reviewed worrisome signs and symptoms when to return to the emergency room. Comfortable plan for discharge home. Medical Decision Making Medical Decision Making MDM Narrative: 19yo female with no medical history here with complaints of body aches, congestion, chills, sore throat since 1am. No chest pain, shortness of breath, skin rash, neck stiffness/pain, abdominal pain, vomiting, diarrhea, cough. No recent travel. Siblings have influenza A. Exam is benign VSS Will send viral, strep testing Differential Diagnosis Differential Diagnoses: The differential diagnosis associated with the presentation includes influenza, strep pharyngitis, viral syndrome, otitis media Admission/Observation Consideration of admission/observation: Escalation of care including admission/observation considered influenza a positive not requiring supplemental oxygen for hypoxia or tachypnea not require admission Lab Data [facility] Lab Attestation statement: I reviewed the patient's lab results. Labs: Lab Results 06/01/25 Range/Units 19:11 Influenza Type A (PCR) POSITIVE A (Negative) Influenza Type B (PCR) NEGATIVE (Negative) RSV RNA Qual (PCR) NEGATIVE (Negative) SARS-CoV-2 RNA (RT-PCR) NEGATIVE (Negative) S. pyogenes GrpA LINDA Negative (Negative) Independent Historian Clinical information obtained from an independent historian. History obtained from or confirmed by: Spouse Prescription Management I considered prescription management with: Antiviral Discharge Plan Discharge Clinical Impression: Influenza A Patient Disposition: Home, Self-Care Instructions: Influenza (ED) Additional Instructions: Influenza a is positive influenza B, RSV, COVID and strep are negative Take Motrin or Tylenol as needed Increase fluids, rest Prescriptions: New ibuprofen 600 mg tablet 600 mg PO Q6H PRN (Reason: fever or pain) Qty: 30 0RF acetaminophen [Tylenol] 325 mg tablet 650 mg PO Q4H PRN (Reason: fever or pain) Qty: 60 0RF No Action cholecalciferol (vitamin D3) 25 mcg (1,000 unit) capsule 25 mcg PO DAILY Referrals: Jaye Travis MD [Primary Care Provider, Family Practice] Stand Alone Forms: Work/School Release Print Language: Persian
[2025-06-01 19:34] LABS: IDNOW Serial# 16C4AD1C; Strep A Nucleic Acid Negative (Negative)
[2025-06-01 19:59] LABS: Resp Syncy Virus RNA Qual PCR NEGATIVE (Negative); SARS COV2 PCR INHOUSE NEGATIVE (Negative)
--- OUTSIDE RECORDS SUMMARY | 2025-06-01 20:24 | XMS_ITS | Clinical Summary ---
Author Organization [employer] Address [address] [place] [address] Care Team Providers Care Health Services Administrator Name Role Phone Jaye Travis MD Primary Care Provider [phone] Donovan Guzmán MD Unavailable [phone] Allergies No known active allergies Medications montelukast [...] within 12 hours or as directed by MD. 30 patch 11 5 Active cholecalciferol (Vitamin D-3) 50 MCG (2000 UT) capsuleIndicatio ns:Vitamin D deficiency Take 1 capsule (50 mcg) by mouth Once per day. 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 05/21/2025 Overview (05/21/2025): -seen by pain management Augustus Guzmán 05/21/25, MRI ordered Wears glasses 02/07/2025 Assessment & Plan (02/07/2025 2:08 PM EDT): Orders: Referral to [facility]; Future Vitamin D deficiency 02/07/2025 Overview (02/07/2025): Lab Results Component Value Date [id number] 21.4 (L) 02/07/2025 -daily vit d started 02/06/25 Assessment & Plan (02/07/2025 2:08 PM EDT): Lab Results Component Value Date [id number] 21.4 (L) 02/07/2025 -daily vit d started [...] Etiology, likely viral URI, nothing to suggest [place] at the moment , aside from mild right sided cervical lymphadenopathy Rapid Covid, Strep and Flu negative. Plan: supportive measures, tylenol, antihistaminics, throat lozenges. Excise for work given Other specified health status 11/24/2022 Overview (02/07/2025): -next comprehensive annual evaluation due after 02/07/26 -referred to [facility] 02/07/25 -dental home is encouraged. Will get in with [facility]. -ashleigh care proxy given and filed 02/07/25 Assessment & Plan (02/07/2025 2:08 PM EDT): -next comprehensive annual evaluation due after 02/07/26 -referred to [facility] 02/07/25 -dental home is encouraged. Will get in with [facility]. -ashleigh care proxy given and [...] Encounters Date Type Department Care Team Description 06/01/2025 Orders Only GENERIC EXTERNAL DATA DEPARTMENT Provider, Generic External Data from Last 3 Months Family History Medical [...] Description 08/01/2025 9:30 AM EST Office Visit [facility] OPTOMETRY [address] [place] [address] Francoise Cortez, OD [address] [place] [address] Health Maintenance Due Date Last Done Comments Family Planning (PISQ) 12/09/2019 Meningococcal B Vaccine (1 of 2 - Standard) 2020 COVID-19 Vaccine (2024-26 season) 2025 Influenza Vaccine (#1) 2025 , 05/20/2020, 07/12/2019, Additional history exists Disability Screening 01/31/2026 01/31/2025 Alcohol/Substance Use Screening 02/07/2026 02/07/2025 Chlamydia and Gonorrhea Screening 02/07/2026 02/07/2025 Depression Screening 02/07/2026 02/07/2025, 02/08/20 25 SDOH Screening 02/07/2026 02/07/2025 Tobacco Screening 02/07/2026 [...] Procedure Name Priority Date/Time Associated Diagnosis Comments SARS COV2/INFLUENZA A/B AND RSV RNA QL NAAT Routine 06/01/2025 7:11 PM EST STREP A NUCLEIC ACID Routine 06/01/2025 7:11 PM EST HEPATITIS C AB W/REFL TO HCV RNA, QN, PCR Routine 02/07/2025 11:00 AM EDT Routine screening for STI (sexually transmitted infection) HIV 1/2 ANTIGEN/ANTIBODY, FOURTH GENERATION W/RFL Routine 02/07/2025 11:00 AM EDT Routine screening for STI (sexually transmitted infection) CHLAMYDIA/TRICHOMON /NEISSERIA GONORRHOEAE, PCR, URINE Routine 02/07/2025 11:00 AM EDT Routine screening for STI (sexually transmitted infection) from Last 3 Months or Most Recently Relevant to Health Maintenance Results * Strep A Nucleic Acid (06/01/2025 7:11 PM EST) IDNOW SERIAL# [id number] [facility] Strep A Nucleic Acid Negative Negative [facility] Comment:All test results mus t be correlated with clinical findings.This test has not been evaluated for monitoring treatment ofinfection.Additional follow-up testing using the culture method isrequired if the result is negative and clinical symptomspersist, or in the event of an acute rheumatic feveroutbreak. 06/01/2025 7:11 PM EST 06/01/2025 7:15 PM EST us Generic External Data Provider LAB MICROBIOLOGY - GENERAL ORDERABLES Final Result [facility] [address] [place] [address] [phone] * (ABNORMAL) SARS-CoV-2 RNA, Influenza A/B, and RSV RNA, Ql NAAT (06/01/2025 7:11 PM EST) Influenza A PCR POSITIVE(A) Negative [facility] Influenza B PCR NEGATIVE Negative [facility] Resp Syncy Virus RNA Qual PCR NEGATIVE Negative [facility] SARS COV2 PCR NEGATIVE Negative [facility] Comment:All test results mus t be correlated with clinical findings.Negative results do not preclude SARS-CoV2, influenza Avirus, influenza B virus and/or RSV infectionand should not be used as the sole basis for treatment orother patient management decisions. Negative results must becombined with clinical observations, patient history, andepidemiological information.This test has not been evaluated for monitoring treatment ofinfection.This test has been authorized by the FDA under an EmergencyUse Authorization (EUA) for use by authorized laboratories.Testing performed on the [employer] GeneXpert utilizingreal-time RT-PCR.All SARS CoV2 and positive influenza A/B results arereported to [facility]. 06/01/2025 7:11 PM EST 06/01/2025 7:15 PM EST us Generic External Data Provider LAB MICROBIOLOGY - GENERAL ORDERABLES Final Result [facility] [address] [place] [phone] * Chlamydia/N. Gonorrhoeae, PCR, Urine (02/07/2025 11:00 AM EDT) CT PCR, Urine NOT DETECTED Not Detect. [facility] Comment:A not detected test result [...] NG PCR, Urine NOT DETECTED Not Detect. [facility] Comment:A not detected test result [...] URINE ORDERABLES Final Result Performing Organization Address [place] Co de Phone Number [facility] [address] [place] [phone] * Hepatitis C Antibody with Reflex to HCV, RNA, Quantitative, Real-Time PCR (02/07/2025 11:00 AM EDT) Hepatitis C Antibody Nonreactive Nonreactive [facility] Comment:Antibodies to HCV no t detected; does not exclude early acuteHCV infection. Blood Venous blood specimen / Unknown 02/07/2025 11:00 AM EDT 02/07/2025 1:12 PM EDT Jaye Travis MD LAB BLOOD ORDERABLES Final Result Performing Organization Address [place] Co de Phone Number [facility] [address] [place] [phone] * HIV-1/2 Antigen and Antibodies, Fourth Generation, with Reflexes (02/07/2025 11:00 AM EDT) HIV AB/AG Nonreactive Nonreactive [facility] Comment:HIV-1 p24 Ag and/or HIV-1/HIV-2 Ab not detected.A test result that is nonreactive does not exclude thepossibility of exposure to or infection with HIV-1 and/orHIV-2. Nonreactive results in this assay for individualswith prior exposure to HIV-1 and/or HIV-2 may be due toantigen and antibody levels that are below the limit ofdetection of this assay.The [employer] HIV Ag/Ab Combo assay result andsupplemental assay results should be interpreted inconjunction with the patient's clinical presentation,history and other laboratory results. If the results areinconsistent with clinical evidence, additional testing issuggested to confirm the result. Blood Venous blood specimen / Unknown 02/07/2025 11:00 AM EDT 02/07/2025 1:12 PM EDT Jaye Travis MD LAB BLOOD ORDERABLES Final Result [facility] [address] [place] [phone] from Last 3 Months or Most Recently Relevant to Health Maintenance Insurance [facility] C3 [facility] Advance Directives Documents on File Type Date Recorded Patient Oracle Ebs Consultant Expl anation Advance Directives and Living Will 02/12/2025 Health Care Proxy 02/07/25 Care Teams Health Services Administrator Relationship Specialty Start Date End Date [place], MD Jaye [address] [place] [phone] PCP - General Family Medicine 06/13/18 Donovan Guzmán MD [address] [place] [address] [address] [place] [address] Pain Medicine 05/21/25
--- OUTSIDE RECORDS SUMMARY | 2025-06-01 20:24 | XMS_ITS | Encounter Summary ---
Author Organization [employer] Address [address] [place] [address] Care Team Providers Care Ammonia Operator Name Role Phone Jaye Travis MD Primary Care Provider [phone] Donovan Guzmán MD Unavailable [phone] Encounter Details Date Type Department Care Team ([facility] st Contact Info) Description 06/01/2025 Orders Only GENERIC EXTERNAL DATA DEPARTMENT Provider, Generic External Data Social History Tobacco Use Types Packs/Day Years [...] t he electric, gas, oil or water [employer] threatened to shut off services in your [...] AM EDT documented as of this encounter Plan of Treatment Upcoming Encounters Date Type Department Care Team (Late st Contact Info) Description 08/01/2025 9:30 AM EST Office Visit [facility] OPTOMETRY [address] [place], [place] [phone] Francoise Cortez, OD [address] [place] [address] documented as of this encounter Procedures Procedure Name Priority Date/Time Associated Diagnosis Comments STREP A NUCLEIC ACID Routine 06/01/2025 7:11 PM EST SARS COV2/INFLUENZA A/B AND RSV RNA QL NAAT Routine 06/01/2025 7:11 PM EST documented in this encounter Results * (ABNORMAL) SARS-CoV-2 RNA, Influenza A/B, and RSV RNA, Ql NAAT (06/01/2025 7:11 PM EST) Influenza A PCR POSITIVE(A) Negative [facility] Influenza B PCR NEGATIVE Negative [facility] Resp Syncy Virus RNA Qual PCR NEGATIVE Negative [facility] SARS COV2 PCR NEGATIVE Negative [facility] Comment:All test results mus t [...] use by authorized laboratories.Testing performed on the [employer] GeneXpert utilizingreal-time RT-PCR.All SARS CoV2 and positive influenza A/B results arereported to [facility]. 06/01/2025 7:11 PM EST 06/01/2025 7:15 PM EST Generic External Data Provider LAB MICROBIOLOGY - GENERAL ORDERABLES Final Result Performing Organization Address [facility] Co de Phone Number [facility] [address] [place] [phone] * Strep A Nucleic Acid (06/01/2025 7:11 PM EST) IDNOW SERIAL# [id number] [facility] Strep A Nucleic Acid Negative Negative [facility] Comment:All test results mus t be correlated with clinical findings.This test has not been evaluated for monitoring treatment ofinfection.Additional follow-up testing using the culture method isrequired if the result is negative and clinical symptomspersist, or in the event of an acute rheumatic feveroutbreak. 06/01/2025 7:11 PM EST 06/01/2025 7:15 PM EST Generic External Data Provider LAB MICROBIOLOGY - GENERAL ORDERABLES Final Result Performing Organization Address [facility] de Phone Number [facility] [address] [place] [phone] documented in this encounter Visit Diagnoses Not on filedocumented in this encounter Additional Health Concerns Assessment Noted Time PHQ-9 Depression Total Score: 1 02/08/20 25 10:25 AM EDT documented as of this encounter Care Teams Ammonia Operator Relationship Specialty Start Date End Date Jaye Travis MD [address] [place] [phone] PCP - General Family Medicine 06/13/18 Donovan Guzmán MD [address] [place] [address] [address] [place] [address] Pain Medicine 05/21/25 documented as of this encounter
[2025-06-01 20:36] VITALS: BP 113/54; PULSE 106; RESP 18; TEMP 36.4; O2SAT 97
== END 2025-06-01 20:36 | disposition home or self-care (01) ==
PROVIDERS: Nurse Practitioner Family; Emergency Provider Emergency Medicine Emergency Medical Services; PCP Family Medicine
DX: J10.1 Influenza due to other identified influenza virus with other respiratory manifestations (principal); M79.10 Myalgia, unspecified site
CPT/HCPCS: 87637; 87651; 99282; 99283